=== PATIENT | male | born 1945 | race Caucasian/White ===

== ENCOUNTER 2025-04-29 16:35 | Observation (INO) | payer MEDICARE, SELFPAY ==
--- NOTE | ~2025-04-29 | MR_ITS ---
EXAMINATION: MR BRAIN WITHOUT CONTRAST CLINICAL INFORMATION: Question TIA. COMPARISON: Correlated to CT dated April 29, 2025 reported subacute to chronic small right subdural hematoma, parietal region. TECHNIQUE: MRI of the brain was obtained using routine sequences without contrast. FINDINGS: There is an extra-axial, crescent-shaped, 11 mm maximal thickness, mixed isointense with hyperintense T1 and hyperintense T2 FLAIR and susceptibility signal abnormality along the superior right frontoparietal convexity with the minimal mass effect upon the adjacent brain parenchyma. There is no midline shift, hydrocephalus or herniation. No restricted diffusion. Flow-void signal within the main cerebral vessels is normal. Posterior cranial fossa contents demonstrated no signal abnormality or mass effect. Normal position of the cerebellar tonsils. Midline structures are intact. Sellar/suprasellar region is normal. Bilateral, a few scattered, nonspecific subcortical deep white matter hyperintense T2 FLAIR signal involving centrum semiovale and connolly radiata. No bone marrow signal abnormality in the bony calvarium. MR/MR head/brain wo con IMPRESSION: Acute and Late subacute subdural hemorrhage, right frontoparietal convexity. No midline shift hydrocephalus or herniation. No acute ischemia. Electronically signed by: Zechariah Barbosa MD 04/30/2025 12:14 PM EST
--- NOTE | ~2025-04-29 | CT_ITS ---
CLINICAL HISTORY: fall with head strike, on thinners CT HEAD WITHOUT CONTRAST Comparison: None provided Findings: Mixed attenuation extra-axial fluid over the right frontoparietal convexity with maximum thickness 11 mm. No underlying parenchymal effacement or edema. No midline shift. No hydrocephalus. Probable subdural catheters bilaterally. Age appropriate generalized parenchymal atrophy. There are periventricular and subcortical white matter hypodensities which are most likely related to microangiopathic gliosis. No sinus or mastoid fluid. Visualized orbits: No acute abnormalities. No acute fracture. Probable ghost tract in the right frontal calvarium. IMPRESSION: Predominantly subacute to chronic small right subdural hematoma with trace superimposed acute blood in the high parietal region. This document has been electronically signed by: Brenda Oseguera DO on 04/29/2025 17:27:40
--- NOTE | 2025-04-29 16:40 | ED.GENADULT ---
HPI - General Adult General Chief complaint: General Medical Stated complaint: dizziness loss eyesight (brain surgery 02/27/25) Time Seen by Provider: 04/29/25 16:57 Related Data Allergies Allergy/AdvReac Type Severity Reaction Status Date / Time No Known Allergies Allergy Verified 04/29/25 16:43 [facility] Social History Social History Advance Directives: No Advance Directives Information Provided: Yes Do you have a plan to hurt others: No Plan Physical Exam ED Vital Signs: Vital Signs - 24 hr 04/29/25 16:41 04/29/25 18:07 Temperature 98 F 98.1 F Pulse Rate 69 69 Respiratory Rate 18 12 Blood Pressure 173/77 H 165/72 H Pulse Oximetry 98 98 Oxygen Delivery Method Room Air Room Air BMI result Body Mass Index 23.6 NIH Stroke Scale Internal: Initial- Upon Arrival Time: 19:12 Level of Consciousness: Alert Level of Consciousness Questions: Answers both questions correctly Level of Consciousness Commands: Performs both tasks correctly Best Gaze: Normal Visual: No visual loss Facial Palsy: Normal Motor Arm (Right): No drift Motor Arm (Left): No drift Motor Leg (Right): No drift Motor Leg (Left): No drift Limb Ataxia: Absent Sensory: Normal Best Language: No aphasia Dysarthia: Normal Extinction and Inattention: No abnormality Score: 0 Course Course Course Narrative: This is a rapid medical exam performed by Dru Hurtado NP: Additional HPI, ROS, PE not included below will be deferred to primary provider. Patient is an 79y/o M s/p brain surgery on 02/27/25 at the [facility] for bleeds presenting with complaint of vision changes today with associated dizziness. States the visual disturbances have since resolved and was exactly like prior TIAs. Also feels very tired. NIHSS 0 in triage. Plan: emergency room registered nurse notified, CT head, labs, EKG Medical Decision Making Medical Decision Making MDM Narrative: patient presented today with having changes in vision. Lasting approximately 5 minutes. Then resolved. There is no trauma today. Patient had a traumatic event back in December. Subsequently was noted to have a subdural hematoma. Drained at the [facility] in early February x2. 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 Currently not on blood thinners. Patient CT scan of the head in the emergency department showed area of subdural hematoma with question bleed noted in the right frontal area. The finding was discussed with Dr. Porter at [facility]. He was able to review the CT scan and compare with the previous CT scan. [place] the CT scan actually improved. had change in vision. Lasting about 5 minutes can not exclude the possibility of a TIA. Patient's NIH stroke scale was 0. Not a good candidate for tPA in the setting of previous history of acute bleed no finding are neuro exam. Patient to be admitted for close monitoring. Hospitalist team was contacted. Differential Diagnosis Differential Diagnoses: The differential diagnosis associated with the presentation includes Intracranial bleed. Subdural hematoma, TIA, amaurosis fugax Admission/Observation Consideration of admission/observation: Escalation of care including admission/observation considered Consult Healthcare Provider Management of the patient was discussed with: Hospitalist and Investment Analyst ( neurosurgery at [facility]) Lab Data MDM Lab Attestation statement: I reviewed the patient's lab results. 04/29/25 17:13 04/29/25 17:13 Labs: Lab Results 04/29/25 Range/Units 17:13 WBC 4.0 L (4.8-10.8) X10*3/uL RBC 4.24 L (4.60-5.80) X10*6/uL Hgb 12.5 L (14.0-18.0) g/dl Hct 38.9 L (42.0-52.0) % MCV 91.7 (80.0-98.0) fL MCH 29.5 (27.0-33.0) pg MCHC 32.1 (31.0-36.0) g/dl RDW 15.4 (11.0-16.0) % MPV 11.4 (9.4-12.4) fL Immature Gran % (Auto) 0.3 (0.0-0.4) % Neut % (Auto) 54.8 (45-73) % Lymph % (Auto) 28.1 (20-40) % [place] % (Auto) 12.0 H (2-11) % Eos % (Auto) 3.5 (0-4) % Baso % (Auto) 1.3 (0-2) % Lymph # (Auto) 1.1 L (1.2-4.9) X10*3/uL [place] # (Auto) 0.5 (0.1-1.2) X10*3/uL Eos # (Auto) 0.1 (0.0-0.4) X10*3/uL Baso # (Auto) 0.1 (0.0-0.2) X10*3/uL Abs Immat Gran (auto) 0.01 (0.00-0.03) X10*3/uL Absolute Neuts (auto) 2.2 (2.0-8.3) x10*3/uL Absolute Nucleated RBC 0.000 (0.0-0.012) X10*3/uL Nucleated RBC % (auto) 0.0 (0.0-0.2) /100WBC PT 13.6 H (11.2-13.5) SEC INR 1.1 (0.9-1.1) Sodium 146 H (135-145) mmol/L Potassium 3.8 (3.3-5.1) mmol/L Chloride 111 H (96-108) mmol/L Carbon Dioxide 26 (22-29) mmol/L Anion Gap 13 (12-20) BUN 16 (9-16) mg/dL Creatinine 0.85 (0.5-1.4) mg/dL Estim Creat Clear Calc 72.5 Estimated GFR > 60 Random Glucose 76 (60-115) mg/dL Calcium 9.4 (8.4-10.2) mg/dL Magnesium 2.2 (1.6-2.6) mg/dL Total Bilirubin 0.9 (0.0-1.0) mg/dL AST 32 (5-37) U/L ALT 35 (0-40) U/L Alkaline Phosphatase 119 H (39-117) U/L Total Protein 7.2 (6.5-8.0) g/dL Albumin 4.4 (3.5-5.0) g/dL Influenza Type A (PCR) NEGATIVE (Negative) Influenza Type B (PCR) NEGATIVE (Negative) RSV RNA Qual (PCR) NEGATIVE (Negative) SARS-CoV-2 RNA (RT-PCR) NEGATIVE (Negative) Independent Interpretation I performed an independent interpretation of an: EKG ( my interpretation of his EKG showed a sinus rhythm heart rate is 70 AK QRS QTC normal no acute ST segment elevation) and CT Scan ( my interpretation patient's CT head showed a old subdural hematoma with question acute component on the right side.) Radiology Impression Discussion of test interpretation with radiology: I discussed test interpretation with the radiologist and I have reviewed the radiologist's reading. Radiologist Impression: I discussed the finding with the radiology team External Record Review External record reviewed: Outpatient record Chronic Conditions history of intracranial bleed Social Determinants Patient?s care significantly limited by Social Determinants of Health including: Problems related to primary support group Critical Care Time Critical Care Time Critical Care Time: Yes Total Critical Care Time: 40 Attestation: I have personally provided 40 minutes of critical care time exclusive of time spent on separately billable procedures. Time includes review of lab data, radiology results, discussion with consultants, and monitoring for potential decompensation. Interventions were performed as documented above Discharge Plan Discharge Clinical Impression: Brain TIA Patient Disposition: Admitted As Inpatient
[2025-04-29 16:41] VITALS: BP 173/77; PULSE 69; RESP 18; TEMP 36.6; O2SAT 98; BMI 23.6
--- NOTE | 2025-04-29 16:45 | ECG_ITS ---
Test Reason : DIZZY Blood Pressure : */* mmHG Vent. Rate : 67 BPM Atrial Rate : 67 BPM P-R Int : 156 ms QRS Dur : 108 ms QT Int : 440 ms P-R-T Axes : 81 -7 67 degrees QTcB Int : 464 ms Normal sinus rhythm Normal ECG No previous ECGs available Referred By: Maria Luz Hurtado Electronically Signed By: DAYSI PEREZ
[2025-04-29 17:39] LABS: Hemoglobin 12.5 g/dl (14.0-18.0); Imm Gran Abs Auto 0.01 X10*3/uL (0.00-0.03); NRBC Abs Auto 0.000 X10*3/uL (0.0-0.012); NRBC Pct Auto 0.0 /100WBC (0.0-0.2); PLT CLUMP 1; SCAN SMEAR FLAG 1
[2025-04-29 17:41] LABS: Hematocrit 38.9 % (42.0-52.0); Imm Gran Pct Auto 0.3 % (0.0-0.4); Lymphocytes Absolute Auto 1.1 X10*3/uL (1.2-4.9); MANUAL DIFF FLAG SCAN; Mean Corpuscular HGB Conc 32.1 g/dl (31.0-36.0); Mean Corpuscular Hemoglobin 29.5 pg (27.0-33.0); Mean Corpuscular Volume 91.7 fL (80.0-98.0); Red Blood Count 4.24 X10*6/uL (4.60-5.80)
[2025-04-29 17:47] LABS: INTERNATIONAL NORM RATIO 1.1 (0.9-1.1); Prothrombin Time 13.6 SEC (11.2-13.5)
[2025-04-29 17:49] LABS: White Blood Count 4.0 X10*3/uL (4.8-10.8)
[2025-04-29 17:51] LABS: Alanine Aminotransferase 35 U/L (0-40); Albumin Level 4.4 g/dL (3.5-5.0); Alkaline Phosphatase 119 U/L (39-117); Anion Gap 13 (12-20); Aspartate Amino Transferase 32 U/L (5-37); Blood Urea Nitrogen 16 mg/dL (9-16); Calcium 9.4 mg/dL (8.4-10.2); Carbon Dioxide 26 mmol/L (22-29); Chloride 111 mmol/L (96-108); Creatinine Clr Calc Pharmacy 72.5; Estimated Glomerular Filt Rate > 60; Magnesium 2.2 mg/dL (1.6-2.6); Potassium 3.8 mmol/L (3.3-5.1); Sodium 146 mmol/L (135-145); Total Protein 7.2 g/dL (6.5-8.0)
[2025-04-29 18:07] VITALS: BP 165/72; PULSE 69; RESP 12; TEMP 36.7; O2SAT 98
--- OUTSIDE RECORDS SUMMARY | 2025-04-29 18:15 | XMS_ITS | Encounter Summary ---
Author Organization [facility] Address [address] [place] [address] Phone Care Team Providers Care Protection Mgr Name Role Phone Self-Referred, Patient Unavailable Unavailab Silvio Lynn MD Unavailable [phone] Samanta Webster MD, MPH Unavailable [phone] Sergio Nation MD Primary Care Provider + Syd Graves MD Unavailable [phone] Encounter Details Date Type Department Care Team (Late st Contact Info) Description 04/29/2025 6:15 PM EST Ancillary Procedure [facility] [address] [place] [address] Clyde Ibarra MD 60 [facility]st [facility] [place] [address] [email or web address] Arrived Social History Tobacco Use Types Packs/Day Years Used Date Smoking Tobacco: Former Cigarettes 1 10 0 08/29/1954 - 08/29/1964 Smokeless Tobacco: Former Alcohol Use Standard Drinks/Week Comments Yes 0 (1 standard drink = 0.6 oz pur e alcohol) special occasions only Education Answer Date Recorded Are you interested in more education? Not on ruperto e 09/24/2022 Are you concerned about learning? Not on file 09/24/2022 No 09/24/2022 No 09/24/2022 Food Answer Date Recorded Within the past 6 months we worried whether our food would run out before we got money to buy more. Never True 03/01/2025 Within the past 6 months the food we bought just didn't last and we didn't have enough money to get more. Never True Residential Stability Answer Date Recor ded What is your housing situation today? I have melvi molina 03/01/2025 How many times have you move d in the past 12 months? Zero (I did not move) 03/01/2025 Paying for Meds Answer Date Recorded Do you have trouble paying for medicines? No 03/01/2025 Paying Utility Bills Answer Date Record ed Do you have trouble paying your heating or elect ricity bill? No 03/01/2025 Transportation Answer Date Recorded Has the lack of transportati on kept you from medical appointments or from getting medications? No 03/01/2025 Digital Access Answer Date Recorded No 03/01/2025 Yes 03/01/2025 Do you have reliable internet access at home? Ye s 03/01/2025 Do you have a device (e.g., phone, tablet, computer) with a working camera? Yes 03/01/2025 Intimate Partner Violence Answer Date R ecorded Are you denied basic needs s uch as food, clothing, or medical care? No 02/28/2025 In the past 12 months have y ou been in a relationship with a person who hurts, threatens, or tries to control you? No 02/28/2025 Are you denied basic needs s uch as food, clothing, or medical care? No 02/28/2025 In the past 12 months have y ou been in a relationship with a person who hurts, threatens, or tries to control you? 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 Not on file Not on file documented as of this encounter Plan of Treatment Upcoming Encounters Date Type Department Care Team (Late st Contact Info) Description 09/18/2024 Procedure Pass [facility], Radiology Department 03/07/2025 Procedure Pass [facility] CT Imaging, [place] [address] [place] [address] 06/06/2025 2:00 PM EST Appointment [facility] CT Imaging, [place] [address] [place] [address] Clyde Ibarra MD [address] [address] [email or web address] 06/06/2025 2:30 PM EST Office Visit [facility] Department of Neurosurgery [address] [place] [address] Clyde Ibarra MD [address] [address] [email or web address] 09/16/2025 8:30 AM EDT Appointment [facility], Radiology Department Syd Graves MD [address] [place] [phone] [email or web address] 09/16/2025 9:00 AM EDT Blood Draw DF/BWCC at [facility], Phlebotomy Services [address] [place] [address] Syd Graves MD [address] [place] [phone] [email or web address] 09/19/2025 10:40 AM EDT Office Visit [facility] at [address] [address] Syd Graves MD [address] [place] [phone] [email or web address] documented as of this encounter Procedures Procedure Name Priority Date/Time Associated Diagnosis Comments CT HEAD OUTSIDE (NO INTERPRETATION) Routine 04/29/2025 6:12 PM EST documented in this encounter Results * CT Head Outside (No Interpretation) (04/29/2025 6:12 PM EST) Narrative MICHAEL - 04/29/2025 6:12 PM EST This study is for PACS storage only and not for interpretation. us Clyde Ibarra MD IMG OUTSIDE IMAGING W/OUT INTER PRETATION Final Result [email or web address]_KENDRICK documented in this encounter Visit Diagnoses Not on filedocumented in this encounter Care Teams Protection Mgr Relationship Specialty Start Date End Date Sergio Nation MD [address] [place] [address] PCP - General Internal Medicine 09/21/22 Self-Referred, Patient 07/20/18 Silvio Currie MD [address] [place] [address] Referring Physician Urology 07/20/18 Samanta Webster MD, MPH [address] [place] [address] [email or web address] Medical Oncology 08/07/18 Syd Graves MD 20 [place] [phone] [email or web address] Primary Oncologist Medical Oncology 09/17/24 documented as of this encounter Additional Source Comments The information contained in this document represents components of the legal health record. It is not the complete legal health record.[facility]
[2025-04-29 18:20] LABS: Resp Syncy Virus RNA Qual PCR NEGATIVE (Negative); SARS COV2 PCR INHOUSE NEGATIVE (Negative)
--- OUTSIDE RECORDS SUMMARY | 2025-04-29 18:56 | XMS_ITS | Encounter Summary ---
Author Organization [facility] Address [address] [facility] [address] [place] [address] Phone Care Team Providers Care Administrative Resources Associate Name Role Phone Self-Referred, Patient Unavailable Unavailab Silvio Lynn MD Unavailable [phone] Samanta Webster MD, MPH Unavailable [phone] Sergio Nation MD Primary Care Provider + Syd Graves MD Unavailable [phone] Encounter Details Date Type Department Care Team (Late st Contact Info) Description 09/15/2023 Procedure Pass [facility], Radiology Department Social History Tobacco Use Types Packs/Day Years [...] on file 09/24/2022 No 09/24/2022 No 09/24/2022 Digital Access Answer Date Recorded No 10/26/2022 No 10/26/2022 No 10/26/2022 Reliable internet access at home? Not on file 10/26/2022 Device with a working camera? Not on file Sex and Gender Information Value Date Recorded [...] st Contact Info) Description 09/18/2024 Procedure Pass [facility], Radiology Department 03/07/[address] [facility] CT Imaging, [place] [address] [place] [address] 06/06/2025 2:00 PM EST Appointment [facility] CT Imaging, [place] [address] [place] [address] Clyde Ibarra MD [address] [address] [email or web address] 06/06/2025 2:30 PM EST Office Visit [facility] Department of Neurosurgery [address] [place] [address] Clyde Ibarra MD [address] [place] [address] [email or web address] 09/16/2025 8:30 AM EDT Appointment [facility], Radiology Department Syd Graves MD [address] [place] [phone] [email or web address] 09/16/2025 9:00 AM EDT Blood Draw DF/BWCC at [facility], Phlebotomy Services [address] [place] [address] Syd Graves MD [address] [place] [phone] [email or web address] 09/19/2025 10:40 AM EDT Office Visit [facility] [address] [address] Syd Graves MD 20 [place] [phone] [email or web address] documented as of this encounter Visit Diagnoses Not on filedocumented in this encounter Care Teams Administrative Resources Associate Relationship Specialty Start Date End Date Sergio Nation MD [address] [place] [address] PCP - General Internal Medicine 09/21/22 Self-Referred, Patient 07/20/18 Silvio Currie MD [address] [place] [address] Referring Physician Urology 07/20/18 Samanta Webster MD, MPH [address] [place] [address] [email or web address] Medical Oncology 08/07/18 Syd Graves MD 20 [place] [phone] [email or web address] Primary Oncologist Medical Oncology 09/17/24 documented as of this encounter Additional Source Comments The information contained in this document represents components of the legal health record. It is not the complete legal health record.[facility]
--- OUTSIDE RECORDS SUMMARY | 2025-04-29 18:56 | XMS_ITS | Encounter Summary ---
Author Organization [facility] Address [address] [facility] [address] [place] [address] Phone Care Team Providers Care Project Eng Name Role Phone Self-Referred, Patient Unavailable Unavailab Silvio Lynn MD Unavailable [phone] Samanta Webster MD, MPH Unavailable [phone] Sergio Nation MD Primary Care Provider + Syd Graves MD Unavailable [phone] Encounter Details Date Type Department Care Team (Late st Contact Info) Description 03/06/[address] [facility] Neuro Interventional Radiology [address] [place] [address] Kathrine Lopez PA-C 60 [place] [address] [email or web address] Social History Tobacco Use Types Packs/Day Years [...] your housing situation today? I have melvi sing 03/01/2025 How many times have you move [...] st Contact Info) Description 09/18/2024 Procedure Pass [facility], Radiology Department 03/07/[address] [facility] CT Imaging, [place] [address] [place] [address] 06/06/2025 2:[address] [facility] CT Imaging, [place] [address] [place] [address] Clyde Ibarra MD [address] [address] [email or web address] 06/06/2025 2:30 PM EST Office Visit [facility] Department of Neurosurgery 60 [place] [address] Clyde Ibarra MD [address] [address] [email or web address] 09/16/2025 8:30 AM EDT Appointment [facility], Radiology Department Syd Graves MD [address] [place] [phone] [email or web address] 09/16/2025 9:00 AM EDT Blood Draw DF/BWCC at [facility], Phlebotomy Services [address] [place] [address] Syd Graves MD [address] [place] [phone] [email or web address] 09/19/2025 10:40 AM EDT Office Visit [facility] at [address] [address] Syd Graves MD [address] [place] [phone] [email or web address] documented as of this encounter Visit Diagnoses Not on filedocumented in this encounter Care Teams Project Eng Relationship Specialty Start Date End Date Sergio Nation MD [address] [place] [address] PCP - General Internal Medicine 09/21/22 Self-Referred, Patient 07/20/18 Silvio Currie MD [address] [place] [address] Referring Physician Urology 07/20/18 Samanta Webstre MD, MPH [address] [place] [address] [email or web address] Medical Oncology 08/07/18 Syd Graves MD 20 [place] [address] [email or web address] Primary Oncologist Medical Oncology 09/17/24 documented as of this encounter Additional Source Comments The information contained in this document represents components of the legal health record. It is not the complete legal health record.[facility]
--- OUTSIDE RECORDS SUMMARY | 2025-04-29 18:56 | XMS_ITS | Encounter Summary ---
Author Organization [facility] Address [address] [facility] [address] [place] [address] Phone Care Team Providers Care Food Technology Teacher Name Role Phone Tapan Ortega MD Primary Care Provide r Self-Referred, Patient Unavailable Unavailab Silvio Lynn MD Unavailable [phone] Samanta Webster MD, MPH Unavailable [phone] Sergio Nation MD Primary Care Provider + Syd Graves MD Unavailable [phone] Encounter Details Date Type Department Care Team (Late st Contact Info) Description 02/12/2020 Procedure Pass [facility], Radiology Department Social History Tobacco Use Types Packs/Day Years Used Date Smoking Tobacco: Former Cigarettes 1 10 0 08/29/1954 - 08/29/1964 Smokeless Tobacco: Former Alcohol Use Standard Drinks/Week Comments Yes 0 (1 standard drink = 0.6 oz pur e alcohol) special occasions only Sex and Gender Information Value Date Recorded [...] st Contact Info) Description 09/18/2024 Procedure Pass [facility], Radiology Department 03/07/2025 Procedure Pass [facility] CT Imaging, [place] [address] [place] [address] 06/06/2025 2:00 PM EST Appointment [facility] CT Imaging, [place] [address] [place] [address] Clyde Ibarra MD [address] [address] [email or web address] 06/06/2025 2:30 PM EST Office Visit [facility] Department of Neurosurgery 60 [place] [address] Clyde Ibarra MD [address] [address] @[email or web address] 09/16/2025 8:30 AM EDT Appointment [facility], Radiology Department Syd Graves MD [address] [place] [phone] [email or web address] 09/16/2025 9:00 AM EDT Blood Draw DF/BWCC at [facility], Phlebotomy Services [address] [place] [address] Syd Graves MD [address] [place] [phone] [email or web address] 09/19/2025 10:40 AM EDT Office Visit [facility] at [address] [address] Syd Graves MD [address] [place] [phone] [email or web address] documented as of this encounter Visit Diagnoses Not on filedocumented in this encounter Additional Health Concerns Infection Onset Date Last Indicated Resolved Time CoV-Risk 03/12/2021 03/12/2021 03/22/2021 1:22 AM EDT documented as of this encounter Care Teams Food Technology Teacher Relationship Specialty Start Date End Date Tapan Ortega MD [address] [place] [address] PCP - General Internal Medicine 03/24/18 09/20/22 Sergio Nation MD [address] [facility] [address] [place] [address] PCP - General Internal Medicine 09/21/22 Self-Referred, Patient 07/20/18 Silvio Currie MD [address] [address] Referring Physician Urology 07/20/18 Samanta Webster MD, MPH [address] [place], [place] [address] [address] [place] [address] [email or web address] Medical Oncology 08/07/18 Syd Graves MD 20 [place] [address] [email or web address] Primary Oncologist Medical Oncology 09/17/24 documented as of this encounter Additional Source Comments The information contained in this document represents components of the legal health record. It is not the complete legal health record.[facility]
--- OUTSIDE RECORDS SUMMARY | 2025-04-29 18:56 | XMS_ITS | Encounter Summary ---
Author Organization [facility] Address [address] [place] [address] Phone Care Team Providers Care Nurse Assistant Name Role Phone Self-Referred, Patient Unavailable Unavailab Silvio Lynn MD Unavailable [phone] Samanta Webster MD, MPH Unavailable [phone] Sergio Nation MD Primary Care Provider + Syd Graves MD Unavailable [phone] Encounter Details Date Type Department Care Team (Late st Contact Info) Description 03/04/2025 Procedure Pass [facility] Neuro Interventional Radiology [address] [place] [id number] Social History Tobacco Use Types Packs/Day Years [...] st Contact Info) Description 09/18/2024 Procedure Pass [facility], Radiology Department 03/07/2025 Procedure Pass [facility] CT Imaging, [place] [address] [place] [address] 06/06/2025 2:00 PM EST Appointment [facility] CT Imaging, [place] [address] [place] [address] Clyde Ibarra MD [address] [address] [email or web address] 06/06/2025 2:30 PM EST Office Visit [facility] Department of Neurosurgery 60 [place] [address] Clyde Ibarra MD [address] [address] [email or web address] 09/16/2025 8:30 AM EDT Appointment [facility], Radiology Department Syd Graves MD [address] [place] [phone] [email or web address] 09/16/2025 9:00 AM EDT Blood Draw DF/BWCC at [facility], Phlebotomy Services [address] [place] [address] Syd Graves MD [address] [place] [phone] [email or web address] 09/19/2025 10:40 AM EDT Office Visit [facility] at [address] [address] Syd Graves MD [address] [place] [phone] [email or web address] documented as of this encounter Visit Diagnoses Not on filedocumented in this encounter Care Teams Nurse Assistant Relationship Specialty Start Date End Date Sergio Nation MD [address] [place] [address] PCP - General Internal Medicine 09/21/22 Self-Referred, Patient 07/20/18 Silvio Currie MD [address] [place] [address] Referring Physician Urology 07/20/18 Samanta Webster MD, MPH [address] [place] [address] [email or web address] Medical Oncology 08/07/18 Syd Graves MD 20 [place] [phone] [email or web address] Primary Oncologist Medical Oncology 09/17/24 documented as of this encounter Additional Source Comments The information contained in this document represents components of the legal health record. It is not the complete legal health record.[facility]
--- OUTSIDE RECORDS SUMMARY | 2025-04-29 18:56 | XMS_ITS | Encounter Summary ---
Author Organization [facility] Address [address] [place] [address] Phone Care Team Providers Care Summer Counselor Name Role Phone Tapan Ortega MD Primary Care Provide r Self-Referred, Patient Unavailable Unavailab iSlvio Lynn MD Unavailable [phone] Samanta Webster MD, MPH Unavailable [phone] Sergio Nation MD Primary Care Provider + Syd Graves MD Unavailable [phone] Reason for Referral * - Closed Specialty Diagnoses / Procedures Referred By Contmargaret jean Referred To Contact Radiology Diagnoses Prostate cancer Procedures NM SPECTCT Tumor Loc Luke Miller MD Phone: tel: fax: mailto:[email or web address] Referral ID Status Reason Start Date Expiration Date Visits Re quested Visits Authorized [id number] Closed 07/10/2018 07/10/2019 1 1 Encounter Details Date Type Department Care Team (Late st Contact Info) Description 07/10/2018 Ancillary Orders [facility] [address] [place] [address] Luke Miller MD [address] [place] [address] [email or web address] Prostate cancer Social History Tobacco Use Types Packs/Day Years Used Date Smoking Tobacco: Never Smokeless Tobacco: Never Sex and Gender Information Value Date Recorded Sex Assigned at Male 09/16/2022 8:12 PM EDT Legal Sex Male 8:04 AM EDT Gender Identity Male 09/16/2022 8:12 PM EDT Sexual Orientation Straight 09/16/2022 8: 12 PM EDT documented as of this encounter Plan of Treatment Upcoming Encounters Date Type Department Care Team (Late st Contact Info) Description 09/18/2024 Procedure Pass [facility], Radiology Department 03/07/[address] [facility] CT Imaging, [place] [address] [place] [address] 06/06/2025 2:[address] [facility] CT Imaging, [place] [address] [place] [address] Clyde Ibarra MD [address] [place] [address] [email or web address] 06/06/2025 2:30 PM EST Office Visit [facility] Department of Neurosurgery [address] [place] [address] Clyde Ibarra MD [address] [place] [address] [email or web address] 09/16/2025 8:30 AM EDT Appointment [facility], Radiology Department Syd Graves MD [address] [place] [phone] [email or web address] 09/16/2025 9:00 AM EDT Blood Draw DF/BWCC at [facility], Phlebotomy Services [address] [place] [address] Syd Graves MD 20 [place] [phone] [email or web address] 09/19/2025 10:40 AM EDT Office Visit [facility] at [facility] [address] [address] Syd Graves MD 20 [place] [phone] [email or web address] documented as of this encounter Results * NM SPECTCT Tumor Loc (07/10/2018 2:46 PM EST) Anatomical Region Laterality Modality Nuclear Medicine 07/10/2018 2:46 PM EST Impressions 07/10/2018 4:21 PM EST 1. There is no scintigraphic evidence of osseous metastatic disease. 2. A 2.2 cm right lower quadrant mesenteric soft tissue lesion with calcification is also incompletely characterized. Differential include calcified inflammatory lymph node, thrombosed aneurysm, less likely carcinoid tumor. Comparison prior imaging would be helpful to assess chronicity, if no prior studies exist, Recommend dedicated contrast enhanced CT abdomen/pelvis for baseline evaluation. 3. Incompletely characterized and partly visualized multiple right renal cysts. These can be better assessed on follow-up imaging.. ATTESTATION: Luke Carlson, as teaching physician have reviewed the images, if any, for this patient's exam, and if necessary, have edited the report originally created by Anant Rodriguez. Narrative 07/10/2018 4:21 PM EST Reason for exam (per EHR order): + Prostate cancer [Known Dx] Additional clinical information obtained from the EHR: 72-year-old male. Elevated PSA levels. Evaluation of osseous metastasis.. TECHNIQUE: Radiopharmaceutical: Tc-99m MDP. Dose: 27.0 mCi. Image acquisition: Approximately three hours following the intravenous administration of radiopharmaceutical, whole body planar imaging was performed in the anterior and posterior projections with additional spot views of the skull and upper extremities. In addition, SPECT/CT imaging of the pelvis was performed for better anatomic localization. COMPARISON: There is no prior bone scan available for comparison. MRI pelvis of 05/12/2018. FINDINGS: There are no focal areas of increased uptake suspicious for osseous metastasis. There are degenerative-appearing changes in the spine, shoulders, acromioclavicular joints, hands, hip, knee and ankle. Focal photopenic defect overlying the sternum on anterior projection is likely artifactual. There is excreted radiotracer in the kidneys and bladder. SPECT/CT: Focal area of increased tracer uptake on the right aspect of L5-S1and left lateral aspect of L2-L3 intervertebral disc and adjacent endplates are in keeping with degenerative changes. Mild uptake associated with the left sacroiliac joint also likely related to degenerative changes. Tiny sclerotic lesion seen in the pubic bones bilaterally and left iliac bone with no significant tracer uptake are more likely benign bone islands. Additional findings on the CT portion of the SPECT/CT: Again seen is prostatomegaly with areas of calcifications. Partially visualized multiple exophytic cysts in the lower pole of the right kidney largest measuring 6.7 cm are incompletely characterized. There is a soft tissue lesion with calcification in the right lower quadrant of the abdomen adjacent to the terminal ileum measuring 2.2 cm. Procedure Note Luke Miller MD - 07/10/2018 Reason for exam (per EHR order): + Prostate cancer [Known Dx] Additional clinical information obtained from the EHR: 72-year-old male. Elevated PSA levels. Evaluation of osseous metastasis.. TECHNIQUE: Radiopharmaceutical: Tc-99m MDP. Dose: 27.0 mCi. Image acquisition: Approximately three hours following the intravenous administration of radiopharmaceutical, whole body planar imaging was performed in the anterior and posterior projections with additional spot views of the skull and upper extremities. In addition, SPECT/CT imaging of the pelvis was performed for better anatomic localization. COMPARISON: There is no prior bone scan available for comparison. MRI pelvis of 05/12/2018. FINDINGS: There are no focal areas of increased uptake suspicious for osseous metastasis. There are degenerative-appearing changes in the spine, shoulders, acromioclavicular joints, hands, hip, knee and ankle. Focal photopenic defect overlying the sternum on anterior projection is likely artifactual. There is excreted radiotracer in the kidneys and bladder. SPECT/CT: Focal area of increased tracer uptake on the right aspect of L5-S1and left lateral aspect of L2-L3 intervertebral disc and adjacent endplates are in keeping with degenerative changes. Mild uptake associated with the left sacroiliac joint also likely related to degenerative changes. Tiny sclerotic lesion seen in the pubic bones bilaterally and left iliac bone with no significant tracer uptake are more likely benign bone islands. Additional findings on the CT portion of the SPECT/CT: Again seen is prostatomegaly with areas of calcifications. Partially visualized multiple exophytic cysts in the lower pole of the right kidney largest measuring 6.7 cm are incompletely characterized. There is a soft tissue lesion with calcification in the right lower quadrant of the abdomen adjacent to the terminal ileum measuring 2.2 cm. IMPRESSION: 1. There is no scintigraphic evidence of osseous metastatic disease. 2. A 2.2 cm right lower quadrant mesenteric soft tissue lesion with calcification is also incompletely characterized. Differential include calcified inflammatory lymph node, thrombosed aneurysm, less likely carcinoid tumor. Comparison prior imaging would be helpful to assess chronicity, if no prior studies exist, Recommend dedicated contrast enhanced CT abdomen/pelvis for baseline evaluation. 3. Incompletely characterized and partly visualized multiple right renal cysts. These can be better assessed on follow-up imaging.. ATTESTATION: Luke Carlson, as teaching physician have reviewed the images, if any, for this patient's exam, and if necessary, have edited the report originally created by Anant Rodriguez. Luke Miller MD IMG NM TUMOR LOC Final Resu lt documented in this encounter Visit Diagnoses Diagnosis Prostate cancer Malignant neoplasm of prostate Prostate cancer Malignant neoplasm of prostate Prostate cancer Malignant neoplasm of prostate documented in this encounter Additional Health Concerns Infection Onset Date Last Indicated Resolved Time CoV-Risk 03/12/2021 03/12/2021 03/22/2021 1:22 AM EDT documented as of this encounter Care Teams Summer Counselor Relationship Specialty Start Date End Date Tapan Ortega MD [address] [place] [address] PCP - General Internal Medicine 10/26/18 4/24/23 Sergio Nation MD [address] [place] [address] PCP - General Internal Medicine 09/21/22 Self-Referred, Patient 07/20/18 Silvio Currie MD [address] [place] [address] Referring Physician Urology 07/20/18 Samanta Webster MD, MPH [address] [place] [address] [email or web address] Medical Oncology 08/07/18 Syd Graves MD [address] [place] [phone] [email or web address] Primary Oncologist Medical Oncology 09/17/24 documented as of this encounter Additional Source Comments The information contained in this document represents components of the legal health record. It is not the complete legal health record.[facility]
--- OUTSIDE RECORDS SUMMARY | 2025-04-29 18:56 | XMS_ITS | Encounter Summary ---
Author Organization [facility] Address [address] [place] [address] Phone Care Team Providers Care Steel Turner Name Role Phone Self-Referred, Patient Unavailable Unavailab Silvio Lynn MD Unavailable [phone] Samanta Webster MD, MPH Unavailable [phone] Sergio Nation MD Primary Care Provider + Syd Graves MD Unavailable [phone] Encounter Details Date Type Department Care Team (Late st Contact Info) Description 07/14/2023 Procedure Pass [facility], Radiology Department Social History Tobacco Use [...] st Contact Info) Description 09/18/2024 Procedure Pass [facility], Radiology Department 03/07/2025 Procedure Pass [facility] CT Imaging, [place] 60 [place] [address] 06/06/2025 2:00 PM EST Appointment [facility] CT Imaging, [place] 60 [place] [address] Clyde Ibarra MD [address] [address] [email or web address] 06/06/2025 2:30 PM EST Office Visit [facility] Department of Neurosurgery [address] [place] [address] Clyde Ibarra MD [address] [place] [address] [email or web address] 09/16/2025 8:30 AM EDT Appointment [facility], Radiology Department Syd Graves MD [address] [place] [phone] [email or web address] 09/16/2025 9:00 AM EDT Blood Draw DF/BWCC at [facility], Phlebotomy Services [address] [place] [address] Syd Graves MD [address] [place] [phone] [email or web address] 09/19/2025 10:40 AM EDT Office Visit [facility] at [facility] [address] [address] Syd Graves MD 20 [place] [phone] [email or web address] documented as of this encounter Visit Diagnoses Not on filedocumented in this encounter Care Teams Steel Turner Relationship Specialty Start Date End Date Sergio Nation MD [address] [place] [address] PCP - General Internal Medicine 09/21/22 Self-Referred, Patient 07/20/18 Silvio Currie MD [address] [place] [address] Referring Physician Urology 07/20/18 Samanta Webster MD, MPH [address] [place] [address] [email or web address] Medical Oncology 08/07/18 Syd Graves MD 20 [place] [address] [email or web address] Primary Oncologist Medical Oncology 09/17/24 documented as of this encounter Additional Source Comments The information contained in this document represents components of the legal health record. It is not the complete legal health record.[facility]
--- OUTSIDE RECORDS SUMMARY | 2025-04-29 18:56 | XMS_ITS | Encounter Summary ---
Author Organization [facility] Address [address] [place] [address] Phone Care Team Providers Care Online Media Director Name Role Phone Self-Referred, Patient Unavailable Unavailab Silvio Lynn MD Unavailable [phone] Samanta Webster MD, MPH Unavailable [phone] Sergio Nation MD Primary Care Provider + Syd Graves MD Unavailable [phone] Encounter Details Date Type Department Care Team (Late st Contact Info) Description 09/15/2023 Procedure Pass [facility] OUTSIDE APPOINTMENT Social History Tobacco Use Types Packs/Day Years [...] st Contact Info) Description 09/18/2024 Procedure Pass [facility], Radiology Department 03/07/2025 Procedure Pass [facility] CT Imaging, [place] 60 [place] [address] 06/06/2025 2:00 PM EST Appointment [facility] CT Imaging, [place] 60 [place] [address] Clyde Ibarra MD [address] [address] [email or web address] 06/06/2025 2:30 PM EST Office Visit [facility] Department of Neurosurgery 60 [place] [address] Clyde Ibarra MD [address] [address] [email or web address] 09/16/2025 8:30 AM EDT Appointment [facility], Radiology Department Syd Graves MD [address] [place] [phone] [email or web address] 09/16/2025 9:00 AM EDT Blood Draw DF/BWCC at [facility], Phlebotomy Services [address] [place] [address] Syd Graves MD [address] [place] [phone] [email or web address] 09/19/2025 10:40 AM EDT Office Visit [facility] at [facility] [address] [address] Syd Graves MD 20 [place] [phone] [email or web address] documented as of this encounter Visit Diagnoses Not on filedocumented in this encounter Care Teams Online Media Director Relationship Specialty Start Date End Date Sergio Nation MD [address] [place] [address] PCP - General Internal Medicine 09/21/22 Self-Referred, Patient 07/20/18 Silvio Currie MD [address] [place] [address] Referring Physician Urology 07/20/18 Samanta Webster MD, MPH [address] [place] [address] [email or web address] Medical Oncology 08/07/18 Syd Graves MD 20 [place] [phone] [email or web address] Primary Oncologist Medical Oncology 09/17/24 documented as of this encounter Additional Source Comments The information contained in this document represents components of the legal health record. It is not the complete legal health record.[facility]
--- OUTSIDE RECORDS SUMMARY | 2025-04-29 18:56 | XMS_ITS | Encounter Summary ---
Author Organization [facility] Address [address] [place] [address] Phone Care Team Providers Care Garage Manager Name Role Phone Tapan Ortega MD Primary Care Provide r Self-Referred, Patient Unavailable Unavailab Silvio Lynn MD Unavailable [phone] Samanta Webster MD, MPH Unavailable [phone] Sergio Nation MD Primary Care Provider + Syd Graves MD Unavailable [phone] Encounter Details Date Type Department Care Team (Late st Contact Info) Description 07/22/2022 Procedure Pass [facility], Radiology Department Social History Tobacco Use Types [...] st Contact Info) Description 09/18/2024 Procedure Pass [facility], Radiology Department 03/07/2025 Procedure Pass [facility] CT Imaging, [place] [address] [place] [address] 06/06/2025 2:00 PM EST Appointment [facility] CT Imaging, [place] [address] [place] [address] Clyde Ibarra MD [address] [address] [email or web address] 06/06/2025 2:30 PM EST Office Visit [facility] Department of Neurosurgery 60 [place] [address] Clyde Ibarra MD [address] [address] [email or web address] 09/16/2025 8:30 AM EDT Appointment [facility], Radiology Department Syd Graves MD [address] [place] [phone] [email or web address] 09/16/2025 9:00 AM EDT Blood Draw DF/BWCC at [facility], Phlebotomy Services [address] [place] [address] Syd Graves MD [address] [place] [phone] [email or web address] 09/19/2025 10:40 AM EDT Office Visit [facility] at [address] [address] Syd Graves MD [address] [place] [phone] [email or web address] documented as of this encounter Visit Diagnoses Not on filedocumented in this encounter Care Teams Garage Manager Relationship Specialty Start Date End Date Tapan Ortega MD [address] [place] [address] [address] [place] [address] PCP - General Internal Medicine 03/24/18 09/20/22 Sergio Nation MD [address] [place] [address] PCP - General Internal Medicine 09/21/22 Self-Referred, Patient 07/20/18 Silvio Currie MD [address] [facility] [address] [place] [address] Referring Physician Urology 07/20/18 Samanta Webster MD, MPH [address] [place], [place] [address] [address] [place] [address] [email or web address] Medical Oncology 08/07/18 Syd Graves MD [address] [place] [phone] [email or web address] Primary Oncologist Medical Oncology 09/17/24 documented as of this encounter Additional Source Comments The information contained in this document represents components of the legal health record. It is not the complete legal health record.[facility]
--- OUTSIDE RECORDS SUMMARY | 2025-04-29 18:57 | XMS_ITS | Encounter Summary ---
Author Organization [facility] Address [address] [place] [address] Phone Care Team Providers Care Silviculture Teacher Name Role Phone Self-Referred, Patient Unavailable Unavailab Silvio Lynn MD Unavailable [phone] Samanta Webster MD, MPH Unavailable [phone] Sergio Nation MD Primary Care Provider + Syd Graves MD Unavailable [phone] Encounter Details Date Type Department Care Team (Late st Contact Info) Description 03/05/2025 Procedure Pass [facility] and [facility]'s Radiology [address] [place] [address] Social History Tobacco Use Types Packs/Day Years [facility] 03/07/2025 Procedure Pass [facility] CT Imaging, [place] [address] [place] [address] 06/06/2025 2:00 PM EST Appointment [facility] CT Imaging, [place] [address] [place] [address] Clyde Ibarra MD [address] [address] [email or web address] 06/06/2025 2:30 PM EST Office Visit [facility] Department of Neurosurgery [address] [place] [address] Clyde Ibarra MD [address] [address] [email or web address] 09/16/2025 8:30 AM EDT Appointment [facility], Radiology Department Syd Graves MD [address] [place] [phone] [email or web address] 09/16/2025 9:00 AM EDT Blood Draw DF/BWCC at [facility], Phlebotomy Services [address] [place] [address] Syd Graves MD [address] [place] [phone] [email or web address] 09/19/2025 10:40 AM EDT Office Visit [facility] at [address] [address] Syd Graves MD [address] [place] [phone] [email or web address] documented as of this encounter Visit Diagnoses Not on filedocumented in this encounter Care Teams Silviculture Teacher Relationship Specialty Start Date End Date Sergio Nation MD [address] [place] [address] PCP - General Internal Medicine 09/21/22 Self-Referred, Patient 07/20/18 Silvio Currie MD [address] [place] [address] Referring Physician Urology 07/20/18 Samanta Webster MD, MPH [address] [place] [address] [email or web address] Medical Oncology 08/07/18 Syd Graves MD [address] [place] [phone] [email or web address] Primary Oncologist Medical Oncology 09/17/24 documented as of this encounter Additional Source Comments The information contained in this document represents components of the legal health record. It is not the complete legal health record.[facility]
--- OUTSIDE RECORDS SUMMARY | 2025-04-29 18:57 | XMS_ITS | Encounter Summary ---
Author Organization [facility] Address [address] [place] [address] Phone Care Team Providers Care Lead Oracle Developer Name Role Phone Self-Referred, Patient Unavailable Unavailab Silvio Lynn MD Unavailable [phone] Samanta Webster MD, MPH Unavailable [phone] Sergio Nation MD Primary Care Provider + Syd Graves MD Unavailable [phone] Encounter Details Date Type Department Care Team (Late st Contact Info) Description 03/02/2025 Procedure Pass [facility] and [facility]'s Radiology [address] [place] [address] Social History Tobacco Use Types Packs/Day Years [...] st Contact Info) Description 09/18/2024 Procedure Pass [facility], Radiology Department 03/07/[address] [facility] CT Imaging, [place] [address] [place] [address] 06/06/2025 2:[address] [facility] CT Imaging, [place] [address] [place] [address] Clyde Ibarra MD [address] [address] [email or web address] 06/06/2025 2:30 PM EST Office Visit [facility] Department of Neurosurgery [address] [place] [address] Clyde Ibarra MD [address] [address] [email or web address] 09/16/2025 8:30 AM EDT Appointment [facility], Radiology Department Syd Graves MD [address] [place] [phone] [email or web address] 09/16/2025 9:00 AM EDT Blood Draw DF/BWCC at [facility], Phlebotomy Services [address] [place] [address] Syd Graves MD [address] [place] [phone] [email or web address] 09/19/2025 10:40 AM EDT Office Visit [facility] at [address] [address] Syd Graves MD [address] [place] [phone] [email or web address] documented as of this encounter Visit Diagnoses Not on filedocumented in this encounter Care Teams Lead Oracle Developer Relationship Specialty Start Date End Date Sergio Nation MD [address] [place] [address] PCP - General Internal Medicine 09/21/22 Self-Referred, Patient 07/20/18 Silvio Currie MD [address] [place] [address] [address] Referring Physician Urology 07/20/18 Samanta Webster MD, MPH [address] [place] [address] [email or web address] Medical Oncology 08/07/18 Syd Graves MD [address] [place] [phone] [email or web address] Primary Oncologist Medical Oncology 09/17/24 documented as of this encounter Additional Source Comments The information contained in this document represents components of the legal health record. It is not the complete legal health record.[facility]
--- OUTSIDE RECORDS SUMMARY | 2025-04-29 18:57 | XMS_ITS | Clinical Summary ---
Author Organization [facility] Address [address] [place] [address] Phone Care Team Providers Care Mdm Developer Name Role Phone Self-Referred, Patient Unavailable Unavailab Silvio Lynn MD Unavailable [phone] Samanta Webster MD, MPH Unavailable [phone] Sergio Nation MD Primary Care Provider + Syd Graves MD Unavailable [phone] Allergies Active Allergy Reactions Criticality Noted Date Comments Pneumococcal 23-Teagan Ps Vaccine Other (See Comments) 05/08/2018 Significant swelling in arm of injection Medications amLODIPine (NORVASC) 5 MG tablet Take 5 mg by mouth every evening. Active atorvastatin (LIPITOR) 40 MG tablet Take 40 mg by mouth every evening. 11/14/2020 Active losartan (COZAAR) 100 MG tablet TAKE 1 TABLET BY MOUTH EVERY DAY MORE REFILLS REQUIRE LAB WORK Active acetaminophen (TYLENOL) 325 mg tablet Take 2 tablets (650 mg total) by mouth every 6 (six) hours as needed for pain (specific location in comments). 03/08/2025 Active ibuprofen (ADVIL,MOTRIN) 600 MG tablet Take 1 tablet (600 mg total) by mouth every 6 (six) hours as needed for pain (specific location in comments). 03/08/2025 Active levETIRAcetam (KEPPRA XR) 750 mg Tb24 Take 2 tablets (1,500 mg total) by mouth nightly at bedtime. 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, cNX, pM1a) - Unsigned Overview (08/29/2018): metastatic, well differentiated neuroendocrine tumor followed at [facility] Decreased ROM of neck Overview (08/29/2018): mildly decreased ROM of the neck - s/p cervical fusion Encounters Date Type Department Care Team Description 04/29/2025 6:15 PM EST Ancillary Procedure [facility] Radiology [address] [place] [address] [id number] Clyde Ibarra MD Arrived 04/29/2025 Ancillary Orders [facility] [address] [place] [address] [phone] Clyde Ibarra MD 03/29/2025 Telephone [facility] Department of Neurosurgery [address] [place] [address] Jordan Manjarrez PA-C 03/22/2025 Telephone [facility] Neuro Interventional Radiology [address] [place] [address] 92[address] Sridhar Zuñiga PA-C 03/07/2025 Orders Only [facility] Neuro Interventional Radiology [address] [place] [address] 35441 Kathrine Lopez PA-C Subdural hematoma (Primary Dx) 03/06/2025 12:34 PM EDT Anesthesia Event [facility] Neuro Interventional Radiology [address] [place] [address] Kd Benitez, Sp Cooper MD 03/06/2025 Telephone [facility] Neuro Interventional Radiology [address] [place] [address] 05616 Kathrine Lopez PA-C 03/05/2025 Procedure Pass [facility] Radiology [address] [place] [address] 03/04/2025 Procedure Pass [facility] Neuro Interventional Radiology [address] [place] [address] [phone] 03/03/2025 Procedure Pass [facility] Radiology [address] [place] [address] 94018 03/03/2025 Procedure Pass [facility] Radiology [address] [place] [address] [phone] 03/02/2025 Procedure Pass [facility] Radiology [address] [place] [address] 41278 03/02/2025 Procedure Pass [facility] [address] [place] [address] 40134 03/01/2025 2:03 PM EDT Anesthesia Event [facility] Neuro Interventional Radiology [address] [place] [address] 80116 Sarika Romero MBBS, MD 03/01/2025 Procedure Pass [facility] Neuro Interventional Radiology [address] [place] [address] [phone] 02/28/2025 5:44 PM EDT - 03/08/2025 6:34 PM EDT Hospital Encounter [facility] [address] [place] [address] 97[address] Dov Sharma MD Patel, Nirav J, MD Discharge Disposition: Rehab Facility 02/28/2025 Procedure Pass [facility] [address] [place] [address] 02/28/2025 Ancillary Orders [facility] [address] [place] [address] 275[address] Harley Vo PA-C 02/28/2025 Ancillary Orders [facility] [address] [place] [address] Harley Vo PA-C 02/25/2025 12:05 AM EDT Ancillary Procedure [facility] Radiology [address] [place] [address] Harley Vo PA-C 02/25/2025 Ancillary Procedure [facility] Radiology [address] [place] [address] Harley Vo PA-C from Last 3 Months Immunizations Immunization Administration Dates Next Due Influenza High-Dose Trivalen t Preservative Free IM 03/08/2025(Deferred: Patient Refused) Family History Medical History Relation Comments Colon cancer Sister Prostate cancer Neg Hx Relation Status Comments Sister Social History Tobacco Use Types Packs/Day Years [...] file Not on file Not on file Last Filed Vital Signs Vital Sign Reading Time Taken Comments Blood Pressure 114/57 03/08/2025 12:46 PM EDT Pulse 68 03/08/2025 4:00 PM EDT Temperature 36.7 C (98 F) 03/08/2025 12:46 PM EDT Respiratory Rate 18 03/07/2025 10:26 PM EDT Oxygen Saturation 97% 03/08/2025 2:00 PM EDT Inhaled Oxygen Concentration - - Weight 79.8 kg (176 lb) 02/28/2025 5:43 PM EDT Height 177.8 cm (5' 10 ) 02/28/2025 5:43 PM EDT Body Mass Index 25.25 02/28/2025 5:43 PM EDT Plan of Treatment Upcoming Encounters Date Type Department Care Team (Late st Contact Info) Description 09/18/2024 Procedure Pass [facility], Radiology Department 03/07/2025 Procedure Pass [facility] CT Imaging, [place] [address] [place] [address] 06/06/2025 2:00 PM EST Appointment [facility] CT Imaging, [place] [address] [place] [address] Clyde Ibarra MD [address] [address] [email or web address] 06/06/2025 2:30 PM EST Office Visit [facility] Department of Neurosurgery [address] [place] [address] Clyde Ibarra MD [address] [address] [email or web address] 09/16/2025 8:30 AM EDT Appointment [facility], Radiology Department Syd Graves MD [address] [place] [address] [phone] [email or web address] 09/16/2025 9:00 AM EDT Blood Draw DF/BWCC at [facility], Phlebotomy Services [address] [place] [address] Syd Graves MD [address] [place] [address] [phone] [email or web address] 09/19/2025 10:40 AM EDT Office Visit [facility] at [address] [phone] Syd Graves MD [address] [place] [address] [phone] [email or web address] Maintenance Due Date Last Done Comments DEPRESSION SCREENING 1957 RSV VACCINE (1 - 1-dose 75+ series) 12/30/2018 INFLUENZA VACCINE (#1) 2024 , 03/04/2020, 03/02/2019, Additional history exists COVID-19 VACCINE (2024- season) 2025 07/25/2020, 07/04/2020 BLOOD PRESSURE 03/20/2025 09/18/2024 CREATININE LEVEL 03/08/2026 03/08/2025, 01/2025, 03/06/2025, Additional history exists POTASSIUM LEVEL 03/08/2026 03/08/2025, 01/2025, 03/06/2025, Additional history exists Adult Td,Tdap Booster 10/14/2032 10/14/2022 , 05/05/2012, 04/22/2007 HEPATITIS A VACCINES Completed 12/26/2015, 11/26/19 15 ZOSTER VACCINES Completed 06/21/2020, 01/28, 05/14/2009 HIB VACCINES Aged Out No longer eligi ble based on patient's age to complete this topic MENINGOCOCCAL VACCINES (ACWY) Aged Out No longer eligible based on patient's age to complete this topic MENINGOCOCCAL VACCINES (B) Aged Out N o longer eligible based on patient's age to complete this topic Medical Devices Implanted Type Area Inspector Wreath Device Identifier Shelf Expiration Date Model / Serial / Lot System Liquid Ino 1.5ml Embolic Glue Embolization Non-Adhesive 18 6% Evoh Dmso - [id number] Implanted:Qty: 1 on 03/01/2025 by Clyde Ibarra MD at [facility] Right: Brain [employer] [facility] 08/23/2026 [id number]- [id number] / / [id number] Description:RIGHT MMA Coil Embolization 0gtf6um I-Ed Complex Silkysoft - [id number] Implanted:Qty: 1 on 03/01/2025 by Clyde Ibarra MD at [facility] Right: Brain [employer]leaf [facility] 03/29/2027 [id number] / / [id number] Description:RIGHT MMA System Liquid [place] 1.5ml Embolic Glue Embolization Non-Adhesive 18 6% Evoh Dmso - [id number] Implanted:Qty: 1 on 03/01/2025 by Clyde Ibarra MD at [facility] Right: Brain [employer] [facility] 04/23/2027 [id number] / / [id number] Description:RIGHT MMA Device Closure 6fr Celt Plus Acd Bx/5ea - [id number] Implanted:Qty: 1 on 03/01/2025 by Clyde Ibarra MD at [facility] Right: Femoral Artery [employer] 11/22/2027 CLT- [id number] Description:RIGHT DRAFTER GEOPHYSICAL Device Closure 6fr Celt Plus Acd Bx/5ea - [id number] Implanted:Qty: 1 on 03/06/2025 by Dayday Maurer MD at [facility] Right: Femoral Artery [employer] 11/22/2027 CLT- [id number] Coil Embolization 1-35gkg22cn I-Ed Coil Extrasoft - [id number] Implanted:Qty: 1 on 03/06/2025 by Dayday Maurer MD at [facility] Left: Arterial [employer] 05/29/2027 [id number] / / [id number] Description:MMA Coil Embolization 1-80xig89dr I-Ed Coil Extrasoft - [id number] Implanted:Qty: 1 on 03/06/2025 by Dayday Maurer MD at [facility] Left: Arterial [employer] [facility] 05/29/2027 [id number] / / [id number] Description:MMA Coil Embolization 1-10nww25ic I-Ed Coil Extrasoft - [id number] Implanted:Qty: 1 on 03/06/2025 by Dayday Maurer MD at [facility] Left: Arterial [employer] [facility] 05/29/2027 [id number] / / [id number] Description:MMA Coil Embolization 0vlh9gc I-Ed Complex Silkysoft - [id number] Implanted:Qty: 1 on 03/06/2025 by Dayday Maurer MD at [facility] Left: Arterial [employer] 03/29/2027 [id number] / / [id number] Description:MMA Coil Embolization 2umt2cz I-Ed Complex Valerit - [id number] Implanted:Qty: 1 on 03/06/2025 by Dayday Maurer MD at [facility] Left: Arterial [employer] [facility] 08/27/2025 [id number] / / [id number] Description:MMA Procedures Procedure Name Priority Date/Time Associated Diagnosis Comments CT HEAD OUTSIDE (NO INTERPRETATION) Routine 04/29/2025 6:12 PM EST BASIC METABOLIC PANEL (BMP) Routine 03/08/2025 6:23 AM EDT CBC Routine 03/08/2025 6:23 AM EDT BASIC METABOLIC PANEL (BMP) Routine 03/07/2025 7:38 AM EDT CBC Routine 03/07/2025 7:38 AM EDT PTT Timed 03/06/2025 3:25 PM EDT PT-INR Routine 03/06/2025 3:25 PM EDT CBC Routine 03/06/2025 3:25 PM EDT BASIC METABOLIC PANEL (BMP) Routine 03/06/2025 3:25 PM EDT INR ENDOVASCULAR NEUROSURGERY Routine 03/06/2025 2:57 PM EDT AIRWAY PLACEMENT Routine 03/06/2025 1:51 PM EDT PROCALCITONIN Routine 03/06/2025 11:52 AM EDT BASIC METABOLIC PANEL (BMP) Routine 03/06/2025 6:21 AM EDT CBC Routine 03/06/2025 6:21 AM EDT URINE SEDIMENT Routine 03/05/2025 11:16 AM EDT URINALYSIS WITH REFLEX TO URINE CULTURE Routine 03/05/2025 11:16 AM EDT XR CHEST PORTABLE Routine 03/05/2025 11: 15 AM EDT BLOOD CULTURE, ROUTINE Routine 03/05/2025 10:20 AM EDT SEDIMENTATION RATE (ESR) Routine 03/05/2025 10:16 AM EDT C-REACTIVE PROTEIN (CRP) Routine 03/05/2025 10:16 AM EDT PROCALCITONIN Routine 03/05/2025 10:16 AM EDT LACTIC ACID (LACTATE) Routine 03/05/2025 10:16 AM EDT BLOOD CULTURE, ROUTINE Routine 03/05/2025 10:16 AM EDT TYPE AND SCREEN (ABO,RH,ANTIBODY SCREEN) Routine 03/05/2025 8:19 AM EDT PT-INR Routine 03/05/2025 8:19 AM EDT PTT Routine 03/05/2025 8:19 AM EDT BASIC METABOLIC PANEL (BMP) Routine 03/05/2025 8:19 AM EDT CBC Routine 03/05/2025 8:[address] HEAD WITHOUT CONTRAST Routine 03/05/2025 8:[address] HEAD WITHOUT CONTRAST STAT 03/04/2025 12:[address] HEAD WITHOUT CONTRAST Routine 03/03/2025 8:[address] HEAD WITHOUT CONTRAST Imaging within next 6 hours 03/02/2025 5:[address] HEAD WITHOUT CONTRAST Routine 03/02/2025 11:12 AM EDT PT-INR STAT 03/02/2025 10:20 AM EDT PTT STAT 03/02/2025 10:20 AM EDT CBC AND DIFFERENTIAL STAT 03/02/2025 10:20 AM EDT BASIC METABOLIC PANEL (BMP) STAT 03/02/2025 10:20 AM EDT ECG 12-LEAD Routine 03/01/2025 5:54 PM EDT INR ENDOVASCULAR NEUROSURGERY STAT 03/01/2025 5:38 PM EDT AIRWAY PLACEMENT Routine 03/01/2025 2:20 PM EDT PTT Routine 03/01/2025 6:41 AM EDT PT-INR Routine 03/01/2025 6:41 AM EDT CBC Routine 03/01/2025 6:41 AM EDT MAGNESIUM Routine 03/01/2025 6:41 AM EDT BASIC METABOLIC PANEL (BMP) Routine 03/01/2025 6:41 AM EDT URINALYSIS STAT 03/01/2025 12:12 AM EDT VANCOMYCIN RESISTANT ENTEROCOCCI (VRE) RECTAL SCREEN Routine 03/01/2025 12:12 AM EDT MRSA NASAL SCREEN Routine 03/01/2025 12: 12 AM EDT ECG 12-LEAD STAT 03/01/2025 12:09 AM EDT MAGNESIUM Routine 02/28/2025 10:54 PM EDT PTT STAT 02/28/2025 10:54 PM EDT PT-INR STAT 02/28/2025 10:54 PM EDT CBC STAT 02/28/2025 10:54 PM EDT BASIC METABOLIC PANEL (BMP) STAT 02/28/2025 10:[address] HEAD WITHOUT CONTRAST Routine 02/28/2025 7:19 PM EDT PT-INR Routine 02/28/2025 6:35 PM EDT TYPE AND SCREEN (ABO,RH,ANTIBODY SCREEN) STAT 02/28/2025 6:35 PM EDT PT-INR STAT 02/28/2025 6:35 PM EDT MAGNESIUM STAT 02/28/2025 6:35 PM EDT BASIC METABOLIC PANEL (BMP) STAT 02/28/2025 6:35 PM EDT CBC AND DIFFERENTIAL STAT 02/28/2025 6:35 PM EDT ECG 12-LEAD STAT 02/28/2025 5:[address] HEAD OUTSIDE WITH INTERPRETATION OR CONSULT Routine 02/25/2025 12:[address] HEAD OUTSIDE WITH INTERPRETATION OR CONSULT Routine 02/25/2025 12:00 AM EDT from Last 3 Months Results * CT Head Outside (No Interpretation) (04/29/2025 6:12 PM EST) Narrative PERCIPIO_BW - 04/29/2025 6:12 PM EST This study is for PACS storage only and not for interpretation. Clyde Ibarra MD IMG OUTSIDE IMAGING W/OUT INTER PRETATION Final Result [facility] * (ABNORMAL) CBC (03/08/2025 6:23 AM EDT) Only the most recent of7 resultswithin the time period is included. WBC 6.51 4.00 - 11.00 K/uL [facility] RBC 3.73(L) 4.50 - 5.90 M/uL [facility] HGB 11.4(L) 13.5 - 17.5 g/dL [facility] HCT 34.2(L) 41.0 - 53.0 % [facility] PLT 179 150 - 450 K/uL [facility] MCV 91.7 80.0 - 100.0 fL [facility] MCH 30.6 27.0 - 31.0 pg [facility] MCHC 33.3 32.0 - 36.0 g/dL [facility] RDW 14.1 11.5 - 14.5 % [facility] MPV 10.8 8.4 - 12.0 fL [facility] NRBC 0.00 0.00 /100 WBCs [facility] ABSOLUTE NRBC 0.00 0.00 K/uL [facility] Blood 03/08/2025 6:23 AM EDT 03/08/2025 7:14 AM EDT us Dayday Koehler PA-C LAB BLOOD BKR ORDERABLES Fi nal Result [facility] [address] [place] [phone] * (ABNORMAL) Basic metabolic panel (03/08/2025 6:23 AM EDT) Only the most recent of9 resultswithin the time period is included. SODIUM 134(L) 136 - 145 mmol/L [facility] POTASSIUM 3.6 3.4 - 5.1 mmol/L [facility] CHLORIDE 101 98 - 107 mmol/L [facility] CO2 22 22 - 31 mmol/L [facility] BUN 17 6 - 23 mg/dL [facility] CREATININE 0.75 0.50 - 1.20 mg/dL [facility] GLUCOSE 106(H) 70 - 100 mg/dL [facility] CALCIUM 8.5(L) 8.8 - 10.7 mg/dL [facility] EGFR 91 >59 mL/min/1.7 3m2 [facility] Comment:Estimated glomerular filtration rate calculated using the CKD-EPI refit equation. ANION GAP 11 7 - 17 mmol/L [facility] Blood 03/08/2025 6:23 AM EDT 03/08/2025 7:14 AM EDT us Dayday Koehler PA-C LAB BLOOD BKR ORDERABLES Fi nal Result Performing Organization Address [facility] de Phone Number [address] [address] * PTT (03/06/2025 3:25 PM EDT) Only the most recent of5 resultswithin the time period is included. APTT 26.7 24.0 - 37.5 sec [facility] Comment:Emicizumab (Hemlibra ) treatment can result in falsely lowered aPTT test results. Blood 03/06/2025 3:25 PM EDT 03/06/2025 3:29 PM EDT us Priyanka Rahman MD, PhD LAB BLOOD BKR ORDERABLES Final R esult Performing Organization Address [facility] Co de Phone Number [address] [address] * (ABNORMAL) PT-INR (03/06/2025 3:25 PM EDT) Only the most recent of7 resultswithin the time period is included. PT 13.1(H) 10.0 - 13.0 sec [facility] INR 1.2(H) 0.9 - 1.1 [facility] Blood 03/06/2025 3:25 PM EDT 03/06/2025 3:29 PM EDT us Priyanka Rahman MD, PhD LAB BLOOD BKR ORDERABLES Final R esult [facility] [address] [place] [phone] * INR Endovascular Neurosurgery Cerebral/Cervical Intervention (03/06/2025 2:57 PM EDT) Anatomical Region Laterality Modality Interventional R adiography 03/06/2025 3:09 PM EDT Impressions 03/07/2025 12:35 PM EDT Complete occlusion by coil embolization of the left middle meningeal artery, without evidence of nontarget embolization or thromboembolic complications. I was present for the procedure ATTESTATION: I, Clyde Ibarra, as teaching physician have reviewed the images, if any, for this patient's exam, and if necessary, have edited the report originally created by Dayday Maurer. Narrative 03/07/2025 12:35 PM EDT [facility] NEUROENDOVASCULAR SERVICE PROCEDURAL NOTE IMPLANTS: Kaneka 4-10x15 0.010 Infini (x3) and 2x8 0.010 complex infini (x3) coils 6F Celt vascular closure device, MRI/3T safe. PROCEDURE: Transfemoral cerebral angiography Left middle meningeal artery embolization INTERVENTIONAL PROCEDURES: Left middle meningeal artery embolization PRE-OPERATIVE DIAGNOSIS: 1. Right convexity subdural hematoma status post right MMA embolization and skylar hole drainage 2. Left convexity subdural hematoma POST-OPERATIVE DIAGNOSIS: Same CATHETERIZATION OF THE FOLLOWING VESSELS: Left common carotid Left external carotid Left middle meningeal artery ANGIOGRAPHY AND INTERPRETATION OF THE FOLLOWING IMAGES: Right common femoral artery, [place] sheath injection (series 2) Left common carotid artery, cranial (series 3) Left common carotid artery, cervical (series 4) Left external carotid artery, craniofacial (series 5-7) Left middle meningeal artery, superselective microcatheterization (series 9) Left middle meningeal artery frontal branch, superselective microcatheterization (series 10) Left middle meningeal artery artery, postembolization (series 11) Left external carotid artery, postembolization (series 12) Left common carotid artery, postembolization (series 13) Other unrecorded imaging was obtained to allow the placement of the catheter into these vessels. INDICATION: Kwabena Hernandez is an 79-year-old man with bilateral convexity subdural hematomas. He previously underwent skylar hole drainage and embolization of the larger right sided collection. He returns now for left MMA embolization. OPERATORS: Attending: Clyde Ibarra M.D. Fellow: MD Dr. Fred Mccall was present for critical portions of the procedure and available for the entire procedure. INFORMED CONSENT: The procedure, its rationale, risks (including but not limited to stroke, , bleeding, damage to blood vessels, infection, and adverse reaction to medications), benefits, and alternatives were discussed with the patient. All questions were appropriately answered and written informed consent was obtained. The patient understood all the risks and complications related to the procedure and demonstrated willingness to proceed. ANESTHESIA: Initially, monitored anesthesia care was administered by [facility] Anesthesiology staff. This was converted to general anesthesia midway through the case due to excessive movement and sonorous respirations. Continuous hemodynamic and respiratory monitoring was performed, including the use of pulse oximetry. MEDICATIONS: see anesthesiology record START TIME: 1416 STOP TIME: 1310 RADIATION DOSE: Fluoroscopy time: 22.1 minutes Dose: 698.92 mGy Dose area product: 15754.05 ESTIMATED BLOOD LOSS: 20cc MATERIALS EMPLOYED: Micropuncture kit 6 Fr short sheath 6 Fr benchmark 071 guide catheter 5 Fr Penumbra Select Berenstein catheter 0.035 Terumo glidewire 5 Fr Rosalva 125cm intermediate catheter 150cm SL10 microcatheter Synchro standard microwire Kaneka coils listed above 6 Fr Celt closure device 65 ml Omnipaque 240 contrast TECHNIQUE: Informed consent was obtained from the patient, who demonstrated clear understanding of the indications, risks, benefits and alternatives of the procedure. The patient was brought to the neuroangiography suite, placed in a supine position on the angiography table and a pre-procedure safety check was performed per standard protocol. The patient underwent induction of monitored anesthesia care. The patient was prepped and draped in the usual sterile fashion. Intra-arterial access was obtained by placing a 6 Thai short sheath in the right common femoral artery using a 5 Thai micropuncture kit and single wall puncture technique. An [place] arteriogram of the right common femoral artery was obtained. Through the sheath, a 6 Thai Benchmark 071, 5F Berenstein catheter and a 0.035 Terumo glidewire were introduced. The catheter was navigated to the descending aorta where a double flush was performed. The Berenstein catheter was then navigated over the arch. The catheter was then withdrawn to engage the left common carotid artery origin. AP and lateral projections were obtained of the left common carotid artery intracranial and cervical circulation. Using roadmap guidance, the left external carotid artery was selectively catheterized over a Glidewire. The guide catheter was advanced into the external carotid. AP and lateral projections were obtained of the left external carotid craniofacial circulation. Through the guide catheter, a coaxial system with a 5 Thai 125 cm Rosalva intermediate catheter, SL10 150 cm microcatheter and Synchro standard microwire was introduced. Using roadmap guidance, the microcatheter was navigated into the left middle meningeal artery. Angiography was performed. The microcatheter was then advanced over the Synchro wire into the frontal and in a branch. Again super selective angiography was performed. At this point, it became apparent that the patient was not tolerating MAC sedation. He was turned to the anesthesia team and underwent induction of general anesthesia and endotracheal intubation. With the airway secure, we are ready to proceed with embolization. Three Kaneka 4-10x15 0.010 Infini coils were introduced into the frontal branch and proximal parietal branch of the left MMA. The proximal MMA was occluded with three 2x8 0.010 complex infini coils. Control angiography of the middle meningeal artery was performed. The microcatheter and intermediate catheter were removed. Control angiography of the external and common carotid arteries was performed. The guide catheter was removed. A 6 Fr Celt closure device was placed for hemostasis. The puncture site was covered with a sterile dressing. The patient was then extubated and transported to the PACU in stable condition. No immediate complications were encountered. FINDINGS: Right common femoral artery, [place] sheath injection (series 2) An [place] arteriogram of the right common femoral artery demonstrates normal vascularity. The arteriotomy is inferior to a previous closure device, centered over the femoral head and proximal to the femoral bifurcation. Left common carotid artery, cranial (series 3) AP and lateral projections of the left common carotid intracranial circulation demonstrates subtle medialization of the distal cortical vasculature due to mass-effect from the known left convexity subdural hematoma. No aneurysms or other vascular affirmations are noted. The venous phase is normal. Left common carotid artery, cervical (series 4) AP and lateral projections of the left common carotid cervical circulation demonstrate subtle luminal irregularity of the distal common carotid artery at the bifurcation, consistent with atherosclerotic disease. There is brisk filling of the internal and external carotid arteries, with no evidence of flow limitation. Left external carotid artery, craniofacial (series 5-7) Multiple AP and lateral projections of the left external carotid fissure circulation are significantly motion degraded, but appear to demonstrate normal vascularity. Left middle meningeal artery, superselective microcatheterization (series 9) AP and lateral projections of the left middle meningeal artery demonstrate normal vascularity. There are prominent frontal, parietal and squamosal branches. There is a meningocolacrimal artery arising from the proximal frontal anatomy. Left middle meningeal artery frontal branch, superselective microcatheterization (series 10) A superselective injection of the frontal MMA branch demonstrates normal vascularity, with no apparent intracranial collaterals. Left middle meningeal artery artery, postembolization (series 11) AP and lateral projections of the left middle meningeal artery following coil embolization demonstrates complete occlusion of the MMA at its origin. There is contrast extravasation into a venous structure, likely a dural vein. Left external carotid artery, postembolization (series 12) AP and lateral projections of the left external carotid artery following coil embolization demonstrates complete occlusion of the MMA at its origin. There is no further contrast extravasation. Left common carotid artery, postembolization (series 13) AP and lateral projections of the left common carotid intracranial circulation demonstrates complete occlusion by coil embolization of the left middle meningeal artery. There is no evidence of nontarget embolization or distal thromboembolic complication. Procedure Note Clyde Ibarra MD - 03/07/2025 [facility] NEURO[facility] PROCEDURAL NOTE IMPLANTS: Kane[place] 4-10x15 0.010 Infini (x3) and 2x8 0.010 complex infini (x3)coils 6F Celt vascular closure device, MRI/3T safe. PROCEDURE: Transfemoral cerebral angiography Left middle meningeal artery embolization INTERVENTIONAL PROCEDURES: Left middle meningeal artery embolization PRE-OPERATIVE DIAGNOSIS: 1. Right convexity subdural hematoma status post right MMA embolizationand skylar hole drainage 2. Left convexity subdural hematoma POST-OPERATIVE DIAGNOSIS: Same CATHETERIZATION OF THE FOLLOWING VESSELS: Left common carotid Left external carotid Left middle meningeal artery ANGIOGRAPHY AND INTERPRETATION OF THE FOLLOWING IMAGES: Right common femoral artery, [place] sheath injection (series 2) Left common carotid artery, cranial (series 3) Left common carotid artery, cervical (series 4) Left external carotid artery, craniofacial (series 5-7) Left middle meningeal artery, superselective microcatheterization (series9) Left middle meningeal artery frontal branch, superselectivemicrocatheterization (series 10) Left middle meningeal artery artery, postembolization (series 11) Left external carotid artery, postembolization (series 12) Left common carotid artery, postembolization (series 13) Other unrecorded imaging was obtained to allow the placement of thecatheter into these vessels. INDICATION: Kwabena Hernandez is an 79-year-old man with bilateral convexity subduralhematomas. He previously underwent skylar hole drainage and embolization ofthe larger right sided collection. He returns now for left MMAembolization. OPERATORS: Attending: Clyde Ibarra M.D. Fellow: MD Dr. Fred Mccall was present for critical portions of the procedure and availablefor the entire procedure. INFORMED CONSENT: The procedure, its rationale, risks (including but notlimited to stroke, , bleeding, damage to blood vessels, infection,and adverse reaction to medications), benefits, and alternatives werediscussed with the patient. All questions were appropriately answered andwritten informed consent was obtained. The patient understood all therisks and complications related to the procedure and demonstratedwillingness to proceed. ANESTHESIA: [facility]. This was converted to general anesthesia midwaythrough the case due to excessive movement and sonorous respirations.Continuous hemodynamic and respiratory monitoring was performed, includingthe use of pulse oximetry. MEDICATIONS: see anesthesiology record START TIME: 1416 STOP TIME: 1310 RADIATION DOSE: Fluoroscopy time: 22.1 minutes Dose: 698.92 mGy Dose area product: 65928.05 ESTIMATED BLOOD LOSS: 20cc MATERIALS EMPLOYED: Micropuncture kit 6 Fr short sheath 6 Fr benchmark 071 guide catheter 5 Fr Penumbra Select Berenstein catheter 0.035 Terumo glidewire 5 Fr Rosalva 125cm intermediate catheter 150cm SL10 microcatheter Synchro standard microwire Kane[place] coils listed above 6 Fr Celt closure device 65 ml Omnipaque 240 contrast TECHNIQUE: Informed consent was obtained from the patient, who demonstrated clearunderstanding of the indications, risks, benefits and alternatives of theprocedure. The patient was brought to the neuroangiography suite, placedin a supine position on the angiography table and a pre-procedure safetycheck was performed per standard protocol. The patient underwent inductionof monitored anesthesia care. The patient was prepped and draped in theusual sterile fashion. Intra-arterial access was obtained by placing a 6French short sheath in the right common femoral artery using a 5 Frenchmicropuncture kit and single wall puncture technique. An [place] arteriogramof the right common femoral artery was obtained. Through the sheath, a 6 Thai Benchmark 071, 5F Berenstein catheter and a0.035 Terumo glidewire were introduced. The catheter was navigated to thedescending aorta where a double flush was performed. The Berensteincatheter was then navigated over the arch. The catheter was then withdrawnto engage the left common carotid artery origin. AP and lateralprojections were obtained of the left common carotid artery intracranialand cervical circulation. Using roadmap guidance, the left externalcarotid artery was selectively catheterized over a Glidewire. The guidecatheter was advanced into the external carotid. AP and lateralprojections were obtained of the left external carotid craniofacialcirculation. Through the guide catheter, a coaxial system with a 5 Thai 125 cm Sofiaintermediate catheter, SL10 150 cm microcatheter and Synchro standardmicrowire was introduced. Using roadmap guidance, the microcatheter wasnavigated into the left middle meningeal artery. Angiography wasperformed. The microcatheter was then advanced over the Synchro wire intothe frontal and in a branch. Again super selective angiography wasperformed. At this point, it became apparent that the patient was not tolerating MACsedation. He was turned to the anesthesia team and underwent induction ofgeneral anesthesia and endotracheal intubation. With the airway secure, we are ready to proceed with embolization. [place] 4-10x15 0.010 Infini coils were introduced into the frontal branchand proximal parietal branch of the left MMA. The proximal MMA wasoccluded with three 2x8 0.010 complex infini coils. Control angiographyof the middle meningeal artery was performed. The microcatheter andintermediate catheter were removed. Control angiography of the externaland common carotid arteries was performed. The guide catheter was removed. A 6 Fr Celt closure device was placed forhemostasis. The puncture site was covered with a sterile dressing. The patient was then extubated and transported to the PACU in stablecondition. No immediate complications were encountered. FINDINGS: Right common femoral artery, [place] sheath injection (series 2) An [place] arteriogram of the right common femoral artery demonstrates normalvascularity. The arteriotomy is inferior to a previous closure device,centered over the femoral head and proximal to the femoral bifurcation. Left common carotid artery, cranial (series 3) AP and lateral projections of the left common carotid intracranialcirculation demonstrates subtle medialization of the distal corticalvasculature due to mass-effect from the known left convexity subduralhematoma. No aneurysms or other vascular affirmations are noted. Thevenous phase is normal. Left common carotid artery, cervical (series 4) AP and lateral projections of the left common carotid cervical circulationdemonstrate subtle luminal irregularity of the distal common carotidartery at the bifurcation, consistent with atherosclerotic disease. Thereis brisk filling of the internal and external carotid arteries, with noevidence of flow limitation. Left external carotid artery, craniofacial (series 5-7) Multiple AP and lateral projections of the left external carotid fissurecirculation are significantly motion degraded, but appear to demonstratenormal vascularity. Left middle meningeal artery, superselective microcatheterization (series9) AP and lateral projections of the left middle meningeal artery demonstratenormal vascularity. There are prominent frontal, parietal and squamosalbranches. There is a meningocolacrimal artery arising from the proximalfrontal anatomy. Left middle meningeal artery frontal branch, superselectivemicrocatheterization (series 10) A superselective injection of the frontal MMA branch demonstrates normalvascularity, with no apparent intracranial collaterals. Left middle meningeal artery artery, postembolization (series 11) AP and lateral projections of the left middle meningeal artery followingcoil embolization demonstrates complete occlusion of the MMA at itsorigin. There is contrast extravasation into a venous structure, likely adural vein. Left external carotid artery, postembolization (series 12) AP and lateral projections of the left external carotid artery followingcoil embolization demonstrates complete occlusion of the MMA at itsorigin. There is no further contrast extravasation. Left common carotid artery, postembolization (series 13) AP and lateral projections of the left common carotid intracranialcirculation demonstrates complete occlusion by coil embolization of theleft middle meningeal artery. There is no evidence of nontargetembolization or distal thromboembolic complication. IMPRESSION: Complete occlusion by coil embolization of the left middle meningealartery, without evidence of nontarget embolization or thromboemboliccomplications. I was present for the procedure ATTESTATION: I, Clyde Ibarra, as teaching physician have reviewed theimages, if any, for this patient's exam, and if necessary, have edited thereport originally created by Dayday Maurer. us Clyde Ibarra MD IMG IR NEURO Final Result * ANES ETT DOUBLE LUMEN - AIRWAY LDA (03/06/2025 1:51 PM EDT) Only the most recent of2 resultswithin the time period is included. Narrative Kd Benitez DO - 03/06/2025 1:51 PM EDT Kd Benitez DO 03/06/2025 3:00 PM Airway Placement Procedure Note: Patient was not difficult to intubate. Procedure performed by: anesthesiologist Anesthesiologist: Kd Benitez DO Airway procedure initiated at:03/06/2025 1:51 PM and ended at. Personal Protective Equipment: Mask: surgical mask Eye Protection: eye shield Gloves: gloves Mask Ventilation: Quality: not attempted Airway Placement: Technique: video laryngoscopy Details: Blade type: Glidescope Blade size: Mac S3 Video view: grade 1 Video Laryngoscopy was: elective Airway manipulation: laryngeal manipulation Number of attempts: 1 ETT type: cuffed ETT size: 7.0 ETT depth at teeth: 23 Cuff volume (mL): adequacy of cuff pressure checked manually by Dr. Benitez. Tube position confirmed by: bilateral breath sounds and EtCO2 Bite Block: soft Outcomes: Evidence of dental injury? no Complications observed? no Notes: Scant saliva suctioned from oropharynx prior to intubation. No signs of aspiration. Lungs CTA B/L after intubation. us Kd Benitez DO [place] ANESTHESIA Final Resu lt * Procalcitonin (03/06/2025 11:52 AM EDT) Only the most recent of2 resultswithin the time period is included. Procalcitonin 0.20 0.00 - 0.25 ng/mL [facility] Comment: <=0.25 ng/mL: Bacterial pneumonia is unlikely. <0.5 ng/mL: Low likelihood of systemic bacterial infection / sepsis. Localized infection is possible. 0.5-2.0 ng/mL: Systemic bacterial infection / sepsis is possible, but other conditions can induce PCT levels in this range as well (e.g., pancreatitis,severe trauma, circulatory shock, surgery, pedro, inhalation injury.) >2.0 ng/mL: Systemic bacterial infection / sepsis is likely. Additional information can be found in the [employer] Procalcitonin Guidelines, available at http://handbook.mgb.org/3817/Content/4-138-251 Blood 03/06/2025 11:5 2 AM EDT 03/06/2025 12:12 PM EDT Luke Jade PA-C LAB BLOOD BKR ORDERA BLES Final Result Performing Organization Address [facility] de Phone Number [facility] [address] [place] [phone] * (ABNORMAL) Urine Sediment (03/05/2025 11:16 AM EDT) WBC 1 <10 /hpf [facility] RBC 6(H) 0 - 2 /hpf [facility] BACTERIA None None /hpf [facility] SQUAMOUS CELLS None None /hpf [facility] HYALINE CAST 0-2 0 - 2 /lpf [facility] TRANSITIONAL EPITH None None /hpf [facility] GRANULAR CAST 5(A) None /lpf [facility] 03/05/2025 11:1 6 AM EDT 03/05/2025 11:46 AM EDT Jonathan Richard PA-C URINE ORDERABLES Final Result Performing Organization Address [facility] de Phone Number [address] [address] * (ABNORMAL) Urinalysis w/reflex Urine Culture (03/05/2025 11:16 AM EDT) Urine Culture Reflex NO [facility] COLOR Yellow Yellow [facility] CLARITY Clear Clear [facility] GLUCOSE Negative Negative [facility] BILI 1+(A) Negative [facility] Comment:Correlation with milo sma bilirubin is recommended KETONES Trace(A) Negative [facility] SPECIFIC GRAVITY 1.028 1.003 - 1.035 [facility] BLOOD 1+(A) Negative [facility] PH 5.5 4.5 - 8.0 [facility] Protein-UA 1+(A) Negative [facility] [place] [facility] UROBILINOGEN Negative Negative [facility] NITRITE Negative Negative [facility] Leukocyte esterase, ur Negative Negative [facility] Urine (Urine) 03/05/2025 11: 16 AM EDT 03/05/2025 11:46 AM EDT us Jonathan Richard PA-C LAB URINE ORDERABLES Final Res ult Performing Organization Address City/State/[facility] Co de Phone Number [facility] [address] [place] [phone] * XR Chest Portable (03/05/2025 11:15 AM EDT) Anatomical Region Laterality Modality Chest Computed Radiogr aphy 03/05/2025 11:2 3 AM EDT Impressions 03/05/2025 11:25 AM EDT No acute abnormality. Narrative 03/05/2025 11:25 AM EDT XR CHEST PORTABLE Referring clinician's provided indication for this examination in [facility]: Cough COMPARISON: None FINDINGS: Devices/Tubes/Lines: None. Lungs: Subcentimeter right upper lobe calcified granuloma or bone island. The lungs are clear. No focal consolidation or pulmonary edema. Pleura: No pleural effusion or pneumothorax. Heart/Mediastinum: Normal heart and mediastinum. Bones/Soft Tissues: No significant skeletal abnormality. Procedure Note Naga Dupree MD - 03/05/2025 XR CHEST PORTABLE Referring clinician's provided indication for this examination in [facility]:Cough COMPARISON: None FINDINGS: Devices/Tubes/Lines: None. Lungs: Subcentimeter right upper lobe calcified granuloma or bone island.The lungs are clear. No focal consolidation or pulmonary edema. Pleura: No pleural effusion or pneumothorax. Heart/Mediastinum: Normal heart and mediastinum. Bones/Soft Tissues: No significant skeletal abnormality. IMPRESSION: No acute abnormality. us Jonathan Richard PA-C IMG XR CHEST Final Result * Blood Culture, Routine (03/05/2025 10:20 AM EDT) Only the most recent of2 resultswithin the time period is included. Special Requests None 03/05/2025 9:45 AM EDT [facility] BLOOD CULTURE NO GROWTH 5 DAYS 03/10/2025 10:50 AM EDT [facility] Blood (Blood) 03/05/2025 10: 20 AM EDT 03/05/2025 10:44 AM EDT us Jonathan Richard PA-C LAB MICROBIOLOGY CULTURE ORDER CARON Final Result Performing Organization Address [facility] Co de Phone Number [facility] [address] [place] [address] * (ABNORMAL) Sedimentation rate (ESR) (03/05/2025 10:16 AM EDT) [facility] ESR 36(H) 0 - 20 mm/h [facility] Comment:Erythrocyte Sediment ation Rate (ESR) reference range change effective 04/09/2019. Blood 03/05/2025 10:1 6 AM EDT 03/05/2025 10:39 AM EDT us Jonathan Richard PA-C LAB BLOOD BKR ORDERABLES Final Result Performing Organization Address City/[facility]/ZIP Co de Phone Number [facility] [address] [address] * (ABNORMAL) C-Reactive Protein (03/05/2025 10:16 AM EDT) Pathologist [facility] C REACTIVE PROTEIN 167.6(H) 0.0 - 10.0 mg/L [facility] Comment: Blood 03/05/2025 10:1 6 AM EDT 03/05/2025 10:39 AM EDT us Jonathan Richard PA-C LAB BLOOD BKR ORDERABLES Final Result Performing Organization Address City/[facility]/ZIP Co de Phone Number [facility] [address] [place] [phone] * Lactate (03/05/2025 10:16 AM EDT) LACTIC ACID (MMOL/L) 1.5 0.2 - 2.0 mmol/L [facility] Blood 03/05/2025 10:1 6 AM EDT 03/05/2025 10:39 AM EDT us Jonathan Richard PA-C LAB BLOOD BKR ORDERABLES Final Result Performing Organization Address [facility] de Phone Number [facility] [address] [place] [phone] * Type and Screen (ABO,Rh,Antibody Screen) (03/05/2025 8:19 AM EDT) Only the most recent of2 resultswithin the time period is included. Expiration Date of Sample 03/08/2025 11:59 PM 03/05/2025 10:54 AM EDT [facility] Resulting Agency [facility] ABO Type O 03/05/2025 10:54 AM EDT [facility] Rh Type Negative 03/05/2025 10:54 AM EDT [facility] Antibody Screen Negative 03/05/2025 10:54 AM EDT [facility] Blood 03/05/2025 8:19 AM EDT 03/05/2025 9:09 AM EDT us Dayday Koehler PA-C LAB BLOOD BANK TEST ORDERAB LES Final Result Performing Organization Address [facility] Co de Phone Number [facility] [address] [place] [phone] * CT HEAD WITHOUT CONTRAST (03/05/2025 8:03 AM EDT) Anatomical Region Laterality Modality Head Computed Tomogra phy 03/05/2025 12:5 2 PM EDT Impressions 03/05/2025 1:18 PM EDT Compared to prior on 03/04/2025 at 12:37 AM: No significant interval change in volume of bilateral subdural hematomas. Continued decrease in right frontal pneumocephalus. Narrative 03/05/2025 1:[address] HEAD WITHOUT CONTRAST Referring clinician's provided indication for this examination in [facility]: * Subdural hematoma TECHNIQUE: Multidetector-row CT of the head was performed without intravenous contrast using tailored dose modulation techniques. Images were reconstructed in the axial, coronal, and sagittal planes. COMPARISON: CT HEAD WITHOUT CONTRAST FINDINGS: Intracranial: Postoperative findings of right middle meningeal artery embolization and right frontal skylar hole. Slight interval decrease in volume of right frontal pneumocephalus. Overall similar volume of bilateral predominantly frontoparietal subdural hemorrhage in comparison to 03/04/2025 at 12:37 AM. No evidence of evolved territorial infarction. No midline shift or hydrocephalus. Osseous and Extracranial Structures: Similar scattered frontoethmoidal sinus air cell secretions. Middle ear and mastoid air cells are clear. Procedure Note David Lopez MD - 03/05/2025 CT HEAD WITHOUT CONTRAST Referring clinician's provided indication for this examination in [facility]: *Subdural hematoma TECHNIQUE: Multidetector-row CT of the head was performed withoutintravenous contrast using tailored dose modulation techniques. Imageswere reconstructed in the axial, coronal, and sagittal planes. COMPARISON: CT HEAD WITHOUT CONTRAST FINDINGS: Intracranial: Postoperative findings of right middle meningeal arteryembolization and right frontal skylar hole. Slight interval decrease involume of right frontal pneumocephalus. Overall similar volume ofbilateral predominantly frontoparietal subdural hemorrhage in comparisonto 03/04/2025 at 12:37 AM. No evidence of evolved territorial infarction.No midline shift or hydrocephalus. Osseous and Extracranial Structures: Similar scattered frontoethmoidalsinus air cell secretions. Middle ear and mastoid air cells are clear. IMPRESSION: Compared to prior on 03/04/2025 at 12:37 AM: No significant interval change in volume of bilateral subdural hematomas.Continued decrease in right frontal pneumocephalus. us Jonathan Richard PA-C IMG CT HEAD/NECK Final Result * CT HEAD WITHOUT CONTRAST (03/04/2025 12:49 AM EDT) Anatomical Region Laterality Modality Head Computed Tomogra phy 03/04/2025 1:24 AM EDT Impressions 03/04/2025 11:17 AM EDT No significant interval change in bilateral cerebral convexity subdural hemorrhages, with slightly decreased right-sided pneumocephalus. ATTESTATION: Sergio Carlson, as teaching physician have reviewed the images, if any, for this patient's exam, and if necessary, have edited the report originally created by Urbano Loco. 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 Now s/p bilateral burrholes and MMAe for SDH evac 03/01 TECHNIQUE: Multidetector-row CT of the head was performed without intravenous contrast using tailored dose modulation techniques. Images were reconstructed in the axial, coronal, and sagittal planes. COMPARISON: CT head FINDINGS: Brain Parenchyma: No new regions of hypoattenuation with associated mass-effect to suggest an acute or subacute transcortical infarction. No new acute intraparenchymal hemorrhage. Ventricular System and Extra-Axial Spaces: Similar bilateral convexity subdural hemorrhages. Slightly decreased right-sided pneumocephalus. Stable ventricle size and configuration. Basilar cisterns are patent. Osseous and Extracranial Structures: Status post middle meningeal artery embolization. Right skylar hole. No significant paranasal sinus disease. Procedure Note Sergio Recinos MD, CECE - 03/04/2025 CT HEAD WITHOUT CONTRAST Referring clinician's provided indication for this examination in [facility]: *Subdural hematoma Review of the Electronic Medical Record reveals an additional history of:79M, on ASA81(TIA, last taken 02/25), pmhx prostate cancer s/p radicalprostatectomy 2018, neuroendocrine tumor of the terminal ileum with livermetastases (continued observation), p/w 4d L sided weakness w/ headstrike3 weeks ago, found to have b/l chronic convexity SDH R 2cm and L 9mm w/oMLS. Now s/p bilateral burrholes and MMAe for SDH evac 03/01 TECHNIQUE: Multidetector-row CT of the head was performed withoutintravenous contrast using tailored dose modulation techniques. Imageswere reconstructed in the axial, coronal, and sagittal planes. COMPARISON: CT head FINDINGS: Brain Parenchyma: No new regions of hypoattenuation with associatedmass-effect to suggest an acute or subacute transcortical infarction. Nonew acute intraparenchymal hemorrhage. Ventricular System and Extra-Axial Spaces: Similar bilateral convexitysubdural hemorrhages. Slightly decreased right-sided pneumocephalus.Stable ventricle size and configuration. Basilar cisterns are patent. Osseous and Extracranial Structures: Status post middle meningeal arteryembolization. Right skylar hole. No significant paranasal sinus disease. IMPRESSION: No significant interval change in bilateral cerebral convexity subduralhemorrhages, with slightly decreased right-sided pneumocephalus. ATTESTATION: Sergio Carlson, as teaching physician have reviewed theimages, if any, for this patient's exam, and if necessary, have edited thereport originally created by Urbano Loco. us Clyde Ibarra MD IMG CT HEAD/NECK Final Result * CT HEAD WITHOUT CONTRAST (03/03/2025 8:26 AM EDT) Anatomical Region Laterality Modality Head Computed Tomogra phy 03/03/2025 12:3 4 PM EDT Impressions 03/03/2025 12:38 PM EDT Stable bilateral cerebral convexity subdural hemorrhages, right greater than left. Narrative 03/03/2025 12:[address] HEAD WITHOUT CONTRAST Referring clinician's provided indication for this examination in [facility]: * Subdural hematoma TECHNIQUE: Multidetector-row CT of the head was performed without intravenous contrast using tailored dose modulation techniques. Images were reconstructed in the axial, coronal, and sagittal planes. COMPARISON: CT brain 03/02/2025 FINDINGS: Brain Parenchyma: No new regions of hypoattenuation with associated mass-effect to suggest an acute or subacute transcortical infarction is evident. No acute intraparenchymal hemorrhage is appreciated. Ventricular System and Extra-Axial Spaces: The previously seen bilateral cerebral convexity subdural hemorrhages with pneumocephalus on the right are similar in size compared to the most recent CT brain dated 03/02/2025. The ventricles are stable in size. Extracranial Structures: Sequela of prior right middle meningeal artery embolization is again evident. The intraorbital contents are preserved. The visualized paranasal sinuses are clear. The mastoid air cells are clear. Procedure Note Sergio Recinos MD, CECE - 03/03/2025 CT HEAD WITHOUT CONTRAST Referring clinician's provided indication for this examination in [facility]: *Subdural hematoma TECHNIQUE: Multidetector-row CT of the head was performed withoutintravenous contrast using tailored dose modulation techniques. Imageswere reconstructed in the axial, coronal, and sagittal planes. COMPARISON: CT brain 03/02/2025 FINDINGS: Brain Parenchyma: No new regions of hypoattenuation with associatedmass-effect to suggest an acute or subacute transcortical infarction isevident. No acute intraparenchymal hemorrhage is appreciated. Ventricular System and Extra-Axial Spaces: The previously seen bilateralcerebral convexity subdural hemorrhages with pneumocephalus on the rightare similar in size compared to the most recent CT brain dated 03/02/2025.The ventricles are stable in size. Extracranial Structures: Sequela of prior right middle meningeal arteryembolization is again evident. The intraorbital contents are preserved.The visualized paranasal sinuses are clear. The mastoid air cells areclear. IMPRESSION: Stable bilateral cerebral convexity subdural hemorrhages, right greaterthan left. us Clyde Ibarra MD IMG CT HEAD/NECK Final Result * CT HEAD WITHOUT CONTRAST (03/02/2025 5:56 PM EDT) Anatomical Region Laterality Modality Head Computed Tomogra phy 03/02/2025 6:12 PM EDT Impressions 03/03/2025 11:19 AM EDT Compared to 03/02/2025 at 11:03 AM: 1. No significant change in subdural hematomas and recent postoperative changes. ATTESTATION: Dayday Carlson, as teaching physician have reviewed the images, if any, for this patient's exam, and if necessary, have edited the report originally created by Silvio Hall. Narrative 03/03/2025 11:[address] HEAD WITHOUT CONTRAST Referring clinician's provided indication for this examination in [facility]: * Subdural hematoma TECHNIQUE: Multidetector-row CT of the head was performed without intravenous contrast using tailored dose modulation techniques. Images were reconstructed in the axial, coronal, and sagittal planes. COMPARISON: CT HEAD WITHOUT CONTRAST 11:03:01.000; CT HEAD OUTSIDE WITH INTERPRETATION OR CONSULT FINDINGS: Intracranial: Post right middle meningeal artery embolization and right frontal skylar hole evacuation of subdural hematoma, with associated surgical changes. No significant change in residual right convexity subdural hematoma and gas, or left holohemispheric subdural hematoma. Mass effect on the underlying brain and partial effacement of the ventricles. No midline shift. No acute segmental infarct. No transependymal flow of CSF to suggest acute hydrocephalus. Osseous and Extracranial Structures: No significant paranasal sinus disease. No orbital abnormality. Procedure Note Dayday Nino MD, PhD - 03/03/2025 CT HEAD WITHOUT CONTRAST Referring clinician's provided indication for this examination in [facility]: *Subdural hematoma TECHNIQUE: Multidetector-row CT of the head was performed withoutintravenous contrast using tailored dose modulation techniques. Imageswere reconstructed in the axial, coronal, and sagittal planes. COMPARISON: CT HEAD WITHOUT CONTRAST 11:03:01.000; CT HEADOUTSIDE WITH INTERPRETATION OR CONSULT FINDINGS: Intracranial: Post right middle meningeal artery embolization and rightfrontal skylar hole evacuation of subdural hematoma, with associatedsurgical changes. No significant change in residual right convexitysubdural hematoma and gas, or left holohemispheric subdural hematoma. Masseffect on the underlying brain and partial effacement of the ventricles.No midline shift. No acute segmental infarct. No transependymal flow ofCSF to suggest acute hydrocephalus. Osseous and Extracranial Structures: No significant paranasal sinusdisease. No orbital abnormality. IMPRESSION: Compared to 03/02/2025 at 11:03 AM: 1. No significant change in subdural hematomas and recent postoperativechanges. ATTESTATION: Dayday Carlson, as teaching physician have reviewed theimages, if any, for this patient's exam, and if necessary, have edited thereport originally created by Silvio Hall. us Clyde Ibarra MD IMG CT HEAD/NECK Final Result * CT HEAD WITHOUT CONTRAST (03/02/2025 11:12 AM EDT) Anatomical Region Laterality Modality Head Computed Tomogra phy 03/02/2025 11:2 7 AM EDT Impressions 03/02/2025 1:11 PM EDT 1. Decreased size of the right subdural hematoma following skylar hole evacuation and middle meningeal artery embolization. New hyperdense right subcalvarial component likely represents recent hemorrhage. Postoperative changes including right frontal pneumocephalus 2. Similar left subdural hematoma. 3. Similar to slightly increased SDH along the falcine and tentorial leaflet. ATTESTATION: Dayday Carlson, as teaching physician have reviewed the images, if any, for this patient's exam, and if necessary, have edited the report originally created by Tamie Ryder. Narrative 03/02/2025 1:[address] HEAD WITHOUT CONTRAST Referring clinician's provided indication for this examination in [facility]: * Subdural hematoma TECHNIQUE: Multidetector-row CT of the head was performed without intravenous contrast using tailored dose modulation techniques. Images were reconstructed in the axial, coronal, and sagittal planes. COMPARISON: CT HEAD WITHOUT CONTRAST FINDINGS: Brain Parenchyma: Decreased mass-effect on the right cerebral convexity from decreased size of the subdural hematoma. Similar mass effect on the left cerebral convexity. No midline shift, parenchymal hemorrhage, or evidence of acute territorial infarct. Ventricular System and Extra-Axial Spaces: Postsurgical findings following right skylar holes and middle meningeal artery embolization. Decreased size of the right subdural hematoma, now measuring up to 17 mm in greatest thickness, previously 21 mm, when remeasured in similar plane. Small volume pneumocephalus, postsurgical. Hyperdense component likely reflects more recent hemorrhage. Similar left subdural hematoma measuring up to 11 mm in thickness. Hyperdense component in the anterior portion likely reflects more recent hemorrhage, similar to prior. Similar to slightly increased hemorrhage along the falx and tentorial leaflets, with greatest component along the superior falx measuring up to 7 mm. Basal cisterns are patent. No hydrocephalus. Osseous and Extracranial Structures: No significant paranasal sinus disease. No orbital abnormality. Procedure Note Dayday Nino MD, PhD - 03/02/2025 CT HEAD WITHOUT CONTRAST Referring clinician's provided indication for this examination in [facility]: *Subdural hematoma TECHNIQUE: Multidetector-row CT of the head was performed withoutintravenous contrast using tailored dose modulation techniques. Imageswere reconstructed in the axial, coronal, and sagittal planes. COMPARISON: CT HEAD WITHOUT CONTRAST FINDINGS: Brain Parenchyma: Decreased mass-effect on the right cerebral convexityfrom decreased size of the subdural hematoma. Similar mass effect on theleft cerebral convexity. No midline shift, parenchymal hemorrhage, orevidence of acute territorial infarct. Ventricular System and Extra-Axial Spaces: Postsurgical findings followingright skylar holes and middle meningeal artery embolization. Decreased sizeof the right subdural hematoma, now measuring up to 17 mm in greatestthickness, previously 21 mm, when remeasured in similar plane. Smallvolume pneumocephalus, postsurgical. Hyperdense component likely reflectsmore recent hemorrhage. Similar left subdural hematoma measuring up to 11mm in thickness. Hyperdense component in the anterior portion likelyreflects more recent hemorrhage, similar to prior. Similar to slightlyincreased hemorrhage along the falx and tentorial leaflets, with greatestcomponent along the superior falx measuring up to 7 mm. Basal cisterns arepatent. No hydrocephalus. Osseous and Extracranial Structures: No significant paranasal sinusdisease. No orbital abnormality. IMPRESSION: 1. Decreased size of the right subdural hematoma following skylar holeevacuation and middle meningeal artery embolization. New hyperdense rightsubcalvarial component likely represents recent hemorrhage. Postoperativechanges including right frontal pneumocephalus 2. Similar left subdural hematoma. 3. Similar to slightly increased SDH along the falcine and tentorialleaflet. ATTESTATION: IDayday, as teaching physician have reviewed theimages, if any, for this patient's exam, and if necessary, have edited thereport originally created by Tamie Ryder. us Clyde Ibarra MD IM CT HEAD/NECK Final Result * (ABNORMAL) CBC and differential (03/02/2025 10:20 AM EDT) Only the most recent of2 resultswithin the time period is included. WBC 8.82 4.00 - 11.00 K/uL [facility] RBC 4.26(L) 4.50 - 5.90 M/uL [facility] HGB 13.3(L) 13.5 - 17.5 g/dL [facility] HCT 39.9(L) 41.0 - 53.0 % [facility] PLT 154 150 - 450 K/uL [facility] MCV 93.7 80.0 - 100.0 fL [facility] MCH 31.2(H) 27.0 - 31.0 pg [facility] MCHC 33.3 32.0 - 36.0 g/dL [facility] RDW 15.0(H) 11.5 - 14.5 % [facility] MPV 11.0 8.4 - 12.0 fL [facility] NRBC 0.00 0.00 /100 WBCs [facility] ABSOLUTE NRBC 0.00 0.00 K/uL [facility] DIFF METHOD Auto [facility] NEUTS 77.1(H) 48.0 - 76.0 % [facility] LYMPHS 7.3(L) 18.0 - 41.0 % [facility] MONOS 15.2(H) 4.0 - 11.0 % [facility] EOS 0.1 0.0 - 5.0 % [facility] BASOS 0.0 0.0 - 1.5 % [facility] % IMMATURE GRANS 0.3 0.0 - 0.9 % [facility] ABSOLUTE NEUTS 6.80 1.92 - 7.60 K/uL [facility] Comment:1.21-5.39 cells/KL i s the reference range for individuals with the Campbell null phenotype ABSOLUTE LYMPHS 0.64(L) 0.72 - 4.10 K/uL [facility] ABSOLUTE MONOS 1.34(H) 0.16 - 1.10 K/uL [facility] ABSOLUTE EOS 0.01 0.00 - 0.50 K/uL [facility] ABSOLUTE BASOS 0.00 0.00 - 0.15 K/uL [facility] ABS IMMATURE GRANS 0.03 0.00 - 0.09 K/uL [facility] ABSOLUTE NEUTROPHIL COUNT 6.80 1.92 - 7.60 K/uL [facility] Comment: Automated cell count. Manual ANC may differ if performed. 1.21-5.39 cells/KL is the reference range for individuals with the Campbell null phenotype Blood 03/02/2025 10:2 0 AM EDT 03/02/2025 10:29 AM EDT us Clyde Ibarra MD LAB BLOOD BKR ORDERABLES Final Result Performing Organization Address City/State/[facility] Co de Phone Number [facility] [address] [place] [id number] * ECG 12-LEAD (03/01/2025 5:54 PM EDT) Only the most recent of3 resultswithin the time period is included. Systolic Blood Pressure 81 mmHg [facility] Diastolic Blood Pressure 51 mmHg [facility] Ventricular Rate EKG/MIN 65 BPM [facility] Atrial Rate 357 BPM [facility] QRS Duration 102 ms [facility] QT Interval 444 ms [facility] QTC Interval 461 ms [facility] R Wave [place] 29 degrees [facility] T Wave [place] 52 degrees [facility] 03/01/2025 5:54 PM EDT Narrative [facility] - 03/05/2025 7:48 AM EDT Junctional rhythm Incomplete right bundle branch block Nonspecific T wave abnormality Prolonged QT interval or t-u fusion, consider myocardial disease, electrolyte imbalance, or drug effects Abnormal ECG When compared with ECG of 01-Mar-2025 00:09, (unconfirmed) Junctional rhythm has replaced Sinus rhythm Incomplete right bundle branch block is now Present QT has lengthened Electronically signed by NOT CONFIRMED BY, CARDIOLOGY ([id number]), publishing editor Angella Redman ([id number]) on 03/05/2025 7:48:30 AM us Provider [facility] ECG ORDERABLES Final Result [facility] * INR Endovascular Neurosurgery Cerebral/Cervical Intervention (03/01/2025 5:38 PM EDT) Anatomical Region Laterality Modality Interventional R adiography 03/01/2025 5:56 PM EDT Impressions 03/04/2025 11:41 AM EDT 1. Successful Ino 18 and coil embolization of the right middle meningeal artery 2. 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 I was present for the procedures. ATTESTATION: I, Clyde Ibarra, as teaching physician have reviewed the images, if any, for this patient's exam, and if necessary, have edited the report originally created by Jake Jordan. Narrative 03/04/2025 11:41 AM EDT Procedure: DIAGNOSTIC CEREBRAL ANGIOGRAM, MMA EMBOLIZATION AND BURRHOLE DECOMPRESSION IMPLANTS: Coil(s): 2x8 [place] 0.010 SS coil Celt closure device, MRI safe. PROCEDURE: Transfemoral cerebral angiography, right MMA embolization and right sided burrhole for evacuation of chronic subdural hematoma INTERVENTIONAL PROCEDURES: Right MMA embolization PREOPERATIVE DIAGNOSIS: Right>left chronic subdural hematoma POSTOPERATIVE DIAGNOSIS: Same CATHETERIZATION OF THE FOLLOWING VESSELS: Right common carotid Right internal carotid Right external carotid Right MMA ANGIOGRAPHY AND INTERPRETATION OF THE FOLLOWING IMAGES: Right common carotid: cervical Right internal carotid: cerebral Right external carotid: craniofacial Right MMA Right external carotid: craniofacial, post-coil Richt external carotid: craniofacial, post embolization / final Right common carotid: cerebral Right common femoral (sheath injection) INDICATIONS FOR SURGERY: 79M on ASA81 (last dose 9/29) with history of prostate cancer (s/p prostatectomy 2018), neuroendocrine tumor with liver metastases, HTN, and HLD, presenting with 4 days of progressive left-sided weakness following head strike 3 weeks ago. Imaging showed bilateral chronic convexity SDH (R 2 cm, L 9 mm). Planned for right MMA embolization right skylar hole for evacuation of right SDH. SURGEON: Clyde Ibarra MD, who was present for the entire procedure ENVIRONMENTAL HEALTH OFFICER : Dayday Maurer MD, Jake Jordan MD INFORMED CONSENT: The procedure, its rationale, risks (including but not limited to stroke, , bleeding, damage to blood vessels, infection, and adverse reaction to medications), benefits, and alternatives were discussed with the patient. All questions were appropriately answered and written informed consent was obtained. The patient understood all the risks and complications related to the procedure and demonstrated willingness to proceed. ANESTHESIA: General anesthesia. Please consult the anesthetic record for further details. MEDICATIONS: See anesthesiology record START TIME: 14:38 STOP TIME: 17:13 RADIATION DOSE: FLUOROSCOPY TIME: 71.6 minutes DOSE: 3649 mGy DOSE AREA PRODUCT: [id number] muGymsquared ESTIMATED BLOOD LOSS: 15 cc MATERIALS EMPLOYED: Micropuncture kit 6F Femoral access sheath 6F Benchmark catheter 5F Berenstein catheter 0.035 Terumo glidewire 5F Rosalva (115 cm) Whitlock-10 microcatheter Synchro microwire [id number] contrast TECHNIQUE: The patient was brought to the interventional neuroradiology suite, placed in a supine position on the angiography table without complication. A pre-procedure safety check was performed per standard [facility] protocol. The anesthesiologist completed induction and intubation without complication; please refer to the anesthesia record for details of all procedures performed, medications administered, and vital signs monitored. The patient was prepped and draped in the usual sterile fashion. Intra-arterial access was obtained by placing a 6 Thai sheath in the right common femoral artery using a 5 Thai micropuncture kit and single wall puncture technique under ultrasound and fluoroscopic guidance. A hand injection of the right common femoral artery was performed through the sheath. Thereafter a 6 Thai benchmark catheter coaxial with 5 Thai Berenstein diagnostic catheter and 0.035 Terumo Glidewire were used to to access the right common carotid, the right internal carotid, and the right external carotid artery for biplane angiography. At this point the diagnostic catheter and Glidewire were removed and a 115 cm Rosalva 5 Thai catheter coaxial with a Whitlock 10 microcatheter and Synchro microwire were used to carefully select the middle meningeal artery for biplane angiography. Next, 10 mg of verapamil were slowly infused into the middle meningeal artery, and the microwire was reinserted to carefully select the parietal branch for embolization. The microwire was removed, and the microcatheter flushed with DMSO. [place] 18 was infused under continuous fluoroscopic guidance carefully monitoring to avoid any reflux towards the meningolacrimal branch and petrosal branches. Intraoperative control biplane injections were obtained. Then the microcatheter was withdrawn proximally in the middle meningeal artery near the takeoff of the frontal branch, and the frontal branch was taken down by deployment of the following coil: 2x8 [place] 0.010 SS coil. Finally, the middle meningeal artery pedicle was taken down by deployment of Ino 18 under continuous fluoroscopic guidance. There was no concern for reflux of Ino into the meningolachrymal branch, the petrosal branch, or other off-target sites. Postprocedural runs were obtained of the following vessels: Right common carotid: cervical, Right common carotid: cerebral The patient was then repositioned prepped and draped in typical sterile fashion preparation for a right frontal skylar hole. A timeout was performed again in order to confirm the correct side, and 10 cc of 1% lidocaine with epinephrine was injected. An incision was made in the skin along the superior temporal line with a 15 blade and a twist drill was used to create a small skylar hole craniectomy. Dark fluid immediately began to egress from the hole, and the burrhole was irrigated with sterile saline. The area was cleaned and dressed in typical fashion. At the completion of the procedure, the femoral sheath was removed and excellent hemostasis was achieved via deployment of a Celt 7 closure device. A Ulises head CT was obtained to characterize the extent of the Ino embolization, and decompression from clot evacuation. The patient tolerated the procedure without any changes in neurological exam and transferred to the PACU. FINDINGS: RIGHT COMMON FEMORAL ARTERY: The femoral arteriotomy site is centered over the femoral head. A microwire is seen advanced into the common iliac artery. AP and [place] DSA projections of a right common femoral artery injection demonstrates brisk opacification of the right common femoral artery, right external iliac artery, and right common iliac artery. The puncture site is above the femoral bifurcation. There is no evidence of occlusive thromboembolic filling defect, dissection or pseudoaneurysm. RIGHT COMMON CAROTID ARTERY: AP and lateral DSA projections of a right common carotid artery injection demonstrate brisk opacification of the right internal carotid artery, right external carotid artery, right middle cerebral artery, right anterior cerebral artery, and their branches. There are no aneurysms, arteriovenous malformations, arteriovenous shunting, vasospasm, or flow limiting stenoses visualized. Capillary and venous phases are normal. RIGHT INTERNAL CAROTID ARTERY: AP and lateral DSA projections of a right internal carotid artery injection demonstrate brisk opacification of the right internal carotid artery, right middle cerebral artery, right anterior cerebral artery, and their branches. There is a small opthalmic artery and orbital blush visualized. There are no aneurysms, arteriovenous malformations, arteriovenous shunting, vasospasm, or flow limiting stenoses visualized. Capillary and venous phases are normal. RIGHT EXTERNAL CAROTID ARTERY: AP and lateral DSA projections of a right external carotid artery injection demonstrates brisk anterograde opacification of the external carotid artery and its branches, including the facial, lingual, occipital, ascending pharnygeal, internal maxillary, superficial temporal, and middle meningeal arteries. There are no aneurysms, arteriovenous malformations, fistulae, early venous drainage, vasospasm, or thromboembolic filling defects visualized. Capillary and venous phases are normal. RIGHT MIDDLE MENINGEAL ARTERY: AP and lateral DSA projections of a right middle meningeal artery injection demonstrates brisk anterograde opacification of frontal and parietal branches extending over the surface of the convexity. RIGHT EXTERNAL CAROTID ARTERY, POST PROCEDURAL CONTROL: AP and lateral DSA projections of a right external carotid artery injection demonstrates brisk anterograde opacification of the external carotid artery and its branches, including the facial, lingual, occipital, ascending pharnygeal, internal maxillary, and superficial temporal arteries. There is no opacification of the middle meningeal artery and its branches. Capillary and venous phases are otherwise normal. RIGHT COMMON CAROTID ARTERY, POST PROCEDURAL CONTROL: AP and lateral DSA projections of a right common carotid artery injection demonstrates brisk anterograde opacification of the common carotid, internal carotid, external carotid, middle cerebral, and anterior cerebral arteries and their branches. Capillary and venous phases are normal. Choroid blush is well visualized. POSTPROCEDURAL RIGHT COMMON FEMORAL ARTERY: AP and [place] DSA projections of a right common femoral artery injection demonstrates brisk opacification of the right common femoral artery, right external iliac artery, and right common iliac artery. There is brisk runoff down the right internal iliac artery, superficial femoral artery, and deep femoral artery. There is no evidence of contrast extravasation, dissection, pseudoaneurysm, or thromboembolic filling defect. ULISES CT: A postoperative Ulises head CT demonstrates Ino cast appropriately within the right middle meningeal artery with no evidence of Ino reflux into the foramen of Hyrtl, or other evidence of off target embolization. There is now decreased mass effect from the subdural hematoma in comparison to preoperative imaging. Procedure Note Clyde Ibarra MD - 03/04/2025 Procedure: DIAGNOSTIC CEREBRAL ANGIOGRAM, MMA EMBOLIZATION AND BURRHOLEDECOMPRESSION IMPLANTS: Coil(s): 2x8 Kaneka 0.010 SS coil Celt closure device, MRI safe. PROCEDURE: Transfemoral cerebral angiography, right MMA embolization andright sided burrhole for evacuation of chronic subdural hematoma INTERVENTIONAL PROCEDURES: Right MMA embolization PREOPERATIVE DIAGNOSIS: Right>left chronic subdural hematoma POSTOPERATIVE DIAGNOSIS: Same CATHETERIZATION OF THE FOLLOWING VESSELS: Right common carotid Right internal carotid Right external carotid Right MMA ANGIOGRAPHY AND INTERPRETATION OF THE FOLLOWING IMAGES: Right common carotid: cervical Right internal carotid: cerebral Right external carotid: craniofacial Right MMA Right external carotid: craniofacial, post-coil Richt external carotid: craniofacial, post embolization / final Right common carotid: cerebral Right common femoral (sheath injection) INDICATIONS FOR SURGERY: 79M on ASA81 (last dose 02/25) with history ofprostate cancer (s/p prostatectomy 2018), neuroendocrine tumor with livermetastases, HTN, and HLD, presenting with 4 days of progressive left-sidedweakness following head strike 3 weeks ago. Imaging showed bilateralchronic convexity SDH (R 2 cm, L 9 mm). Planned for right MMA embolizationright skylar hole for evacuation of right SDH. SURGEON: Clyde Ibarra MD, who was present for the entire procedure ENVIRONMENTAL HEALTH OFFICER : Dayday Maurer MD, Jake Jordan MD INFORMED CONSENT: The procedure, its rationale, risks (including but notlimited to stroke, , bleeding, damage to blood vessels, infection,and adverse reaction to medications), benefits, and alternatives werediscussed with the patient. All questions were appropriately answered andwritten informed consent was obtained. The patient understood all therisks and complications related to the procedure and demonstratedwillingness to proceed. ANESTHESIA: General anesthesia. Please consult the anesthetic record forfurther details. MEDICATIONS: See anesthesiology record START TIME: 14:38 STOP TIME: 17:13 RADIATION DOSE: FLUOROSCOPY TIME: 71.6 minutes DOSE: 3649 mGy DOSE AREA PRODUCT: 64143 muGymsquared ESTIMATED BLOOD LOSS: 15 cc MATERIALS EMPLOYED: Micropuncture kit 6F Femoral access sheath 6F Benchmark catheter 5F Berenstein catheter 0.035 Terumo glidewire 5F Rosalva (115 cm) Whitlock-10 microcatheter Synchro microwire Inzn106 contrast TECHNIQUE: The patient was brought to the interventional neuroradiology suite, placedin a supine position on the angiography table without complication. Apre-procedure safety check was performed per standard [facility] protocol. Theanesthesiologist completed induction and intubation without complication;please refer to the anesthesia record for details of all proceduresperformed, medications administered, and vital signs monitored. Thepatient was prepped and draped in the usual sterile fashion.Intra-arterial access was obtained by placing a 6 Thai sheath in theright common femoral artery using a 5 Thai micropuncture kit and singlewall puncture technique under ultrasound and fluoroscopic guidance. A handinjection of the right common femoral artery was performed through theeath. Thereafter a 6 Thai benchmark catheter coaxial with 5 Thai Berensteindiagnostic catheter and 0.035 Terumo Glidewire were used to to access theright common carotid, the right internal carotid, and the right externalcarotid artery for biplane angiography. At this point the diagnostic catheter and Glidewire were removed and a 115cm Rosalva 5 Thai catheter coaxial with a Whitlock 10 microcatheter andSynchro microwire were used to carefully select the middle meningealartery for biplane angiography. Next, 10 mg of verapamil were slowlyinfused into the middle meningeal artery, and the microwire was reinsertedto carefully select the parietal branch for embolization. The microwirewas removed, and the microcatheter flushed with DMSO. Saint John 18 was infusedunder continuous fluoroscopic guidance carefully monitoring to avoid anyreflux towards the meningolacrimal branch and petrosal branches.Intraoperative control biplane injections were obtained. Then themicrocatheter was withdrawn proximally in the middle meningeal artery nearthe takeoff of the frontal branch, and the frontal branch was taken downby deployment of the following coil: 2x8 Kaneka 0.010 SS coil. Finally,the middle meningeal artery pedicle was taken down by deployment of Onyx18 under continuous fluoroscopic guidance. There was no concern for refluxof Saint John into the meningolachrymal branch, the petrosal branch, or otheroff-target sites. Postprocedural runs were obtained of the followingvessels: Right common carotid: cervical, Right common carotid: cerebral The patient was then repositioned prepped and draped in typical sterilefashion preparation for a right frontal skylar hole. A timeout was performedagain in order to confirm the correct side, and 10 cc of 1% lidocaine withepinephrine was injected. An incision was made in the skin along thesuperior temporal line with a 15 blade and a twist drill was used tocreate a small skylar hole craniectomy. Dark fluid immediately began toegress from the hole, and the burrhole was irrigated with sterile saline.The area was cleaned and dressed in typical fashion. At the completion of the procedure, the femoral sheath was removed andexcellent hemostasis was achieved via deployment of a Celt 7 closuredevice. A Ulises head CT was obtained to characterize the extent of the Onyxembolization, and decompression from clot evacuation. The patienttolerated the procedure without any changes in neurological exam andtransferred to the PACU. FINDINGS: RIGHT COMMON FEMORAL ARTERY: The femoral arteriotomy site is centered overthe femoral head. A microwire is seen advanced into the common iliacartery. AP and [place] DSA projections of a right common femoral arteryinjection demonstrates brisk opacification of the right common femoralartery, right external iliac artery, and right common iliac artery. Thepuncture site is above the femoral bifurcation. There is no evidence ofocclusive thromboembolic filling defect, dissection or pseudoaneurysm. RIGHT COMMON CAROTID ARTERY: AP and lateral DSA projections of a rightcommon carotid artery injection demonstrate brisk opacification of theright internal carotid artery, right external carotid artery, right middlecerebral artery, right anterior cerebral artery, and their branches. Thereare no aneurysms, arteriovenous malformations, arteriovenous shunting,vasospasm, or flow limiting stenoses visualized. Capillary and venousphases are normal. RIGHT INTERNAL CAROTID ARTERY: AP and lateral DSA projections of a rightinternal carotid artery injection demonstrate brisk opacification of theright internal carotid artery, right middle cerebral artery, rightanterior cerebral artery, and their branches. There is a small opthalmicartery and orbital blush visualized. There are no aneurysms, arteriovenousmalformations, arteriovenous shunting, vasospasm, or flow limitingstenoses visualized. Capillary and venous phases are normal. RIGHT EXTERNAL CAROTID ARTERY: AP and lateral DSA projections of a rightexternal carotid artery injection demonstrates brisk anterogradeopacification of the external carotid artery and its branches, includingthe facial, lingual, occipital, ascending pharnygeal, internal maxillary,superficial temporal, and middle meningeal arteries. There are noaneurysms, arteriovenous malformations, fistulae, early venous drainage,vasospasm, or thromboembolic filling defects visualized. Capillary andvenous phases are normal. RIGHT MIDDLE MENINGEAL ARTERY: AP and lateral DSA projections of a rightmiddle meningeal artery injection demonstrates brisk anterogradeopacification of frontal and parietal branches extending over the surfaceof the convexity. RIGHT EXTERNAL CAROTID ARTERY, POST PROCEDURAL CONTROL: AP and lateral DSAprojections of a right external carotid artery injection demonstratesbrisk anterograde opacification of the external carotid artery and itsbranches, including the facial, lingual, occipital, ascending pharnygeal,internal maxillary, and superficial temporal arteries. There is noopacification of the middle meningeal artery and its branches. Capillaryand venous phases are otherwise normal. RIGHT COMMON CAROTID ARTERY, POST PROCEDURAL CONTROL: AP and lateral DSAprojections of a right common carotid artery injection demonstrates briskanterograde opacification of the common carotid, internal carotid,external carotid, middle cerebral, and anterior cerebral arteries andtheir branches. Capillary and venous phases are normal. Choroid blush iswell visualized. POSTPROCEDURAL RIGHT COMMON FEMORAL ARTERY: AP and [place] DSA projections ofa right common femoral artery injection demonstrates brisk opacificationof the right common femoral artery, right external iliac artery, and rightcommon iliac artery. There is brisk runoff down the right internal iliacartery, superficial femoral artery, and deep femoral artery. There is noevidence of contrast extravasation, dissection, pseudoaneurysm, orthromboembolic filling defect. ULISES CT: A postoperative Ulises head CT demonstrates Ino cast appropriatelywithin the right middle meningeal artery with no evidence of Saint John refluxinto the foramen of Hyrtl, or other evidence of off target embolization.There is now decreased mass effect from the subdural hematoma incomparison to preoperative imaging. IMPRESSION: 1. Successful Ino 18 and coil embolization of the right middle meningealartery 2. 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 I was present for the procedures. ATTESTATION: I, Clyde Ibarra, as teaching physician have reviewed theimages, if any, for this patient's exam, and if necessary, have edited thereport originally created by Jake Jordan. us Clyde Ibarra MD IMG IR NEURO Final Result * Magnesium (03/01/2025 6:41 AM EDT) Only the most recent of3 resultswithin the time period is included. MAGNESIUM 2.2 1.7 - 2.6 mg/dL [facility] Blood 03/01/2025 6:41 AM EDT 03/01/2025 7:02 AM EDT Dov Sharma MD LAB BLOOD BKR ORDERABLES Fin al Result Performing Organization Address City/[facility]/[place] [address] * MRSA Nasal Screen (03/01/2025 12:12 AM EDT) Special Requests None 02/28/2025 10:46 PM EDT [facility] MRSA Nasal Culture NO METHICILLIN RESISTANT STAPHYLOCOCCUS AUREUS ISOLATED 03/02/2025 6:40 AM EDT [facility] Other (Nasal) 03/01/2025 12: 12 AM EDT 03/01/2025 7:08 AM EDT us Dov Sharma MD LAB MICROBIOLOGY CULTURE ORD ERABLES Final Result Performing Organization Address [facility] Co de Phone Number [facility] [employer] [address] [place] [phone] * Vancomycin Resistant Enterococci (VRE), Rectal Screen (03/01/2025 12:12 AM EDT) Special Requests None 02/28/2025 10:46 PM EDT [facility] VRE Rectal Culture NO VANCOMYCIN RESISTANT ENTEROCOCCI ISOLATED 03/02/2025 6:34 AM EDT [facility] Other (Rectal) 03/01/2025 12 :12 AM EDT 03/01/2025 7:21 AM EDT Dov Sharma MD LAB MICROBIOLOGY CULTURE ORD ERABLES Final Result Performing Organization Address [facility] de Phone Number [facility] [address] [place] [phone] * (ABNORMAL) Urinalysis (03/01/2025 12:12 AM EDT) COLOR LT YELLOW(A) Yellow [facility] CLARITY Clear Clear [facility] GLUCOSE Negative Negative [facility] BILI Negative Negative [facility] KETONES Negative Negative [facility] SPECIFIC GRAVITY 1.019 1.003 - 1.035 [facility] BLOOD Negative Negative [facility] PH 5.5 4.5 - 8.0 [facility] Protein-UA Negative Negative [facility] UROBILINOGEN Negative Negative [facility] NITRITE Negative Negative [facility] Leukocyte esterase, ur Negative Negative [facility] Urine (Urine) 03/01/2025 12: 12 AM EDT 03/01/2025 12:19 AM EDT us Dov Sharma MD LAB URINE ORDERABLES Final R esult Performing Organization Address [facility] de Phone Number [address] [phone] * CT HEAD WITHOUT CONTRAST (02/28/2025 7:19 PM EDT) Anatomical Region Laterality Modality Head Computed Tomogra phy 02/28/2025 7:38 PM EDT Impressions 02/28/2025 7:40 PM EDT Large bilateral subdural hemorrhages, acute on chronic hemorrhage. Similar to the previous exam. No midline shift. Narrative 02/28/2025 7:[address] HEAD WITHOUT CONTRAST Referring clinician's provided indication for this examination in [facility]: * Subdural hematoma; Subacute subdural hematoma on 02/24 in [place], presenting for stability scan status post dexamethasone X3. TECHNIQUE: CT of the head was performed without intravenous contrast using tailored dose modulation techniques. Images were reconstructed in the axial, coronal, and sagittal planes. COMPARISON: CT HEAD OUTSIDE WITH INTERPRETATION OR CONSULT FINDINGS: Brain Parenchyma: There is effacement of the sulci bilaterally due to the subdural hemorrhage. No focal parenchymal hemorrhage or ischemia. No mass-effect or midline shift. Ventricular System and Extra-Axial Spaces: Large bilateral subdural hemorrhages are present along the convexity. Largest right subdural hemorrhage measures 2.6 in meters wide. It is predominantly low in density but there is mild hyperdense fluid as well, acute on chronic hemorrhage. The left subdural hemorrhage along the entire left convexity is dense, more recent hemorrhage, measuring about 12 mm wide. There is acute hemorrhage in the left frontal subdural region. Similar to the previous exam. The ventricles are normal in size. Osseous and Extracranial Structures: No acute osseous abnormality.No significant paranasal sinus disease. No orbital abnormality. Procedure Note Karmen Rosario MD, PhD - 02/28/2025 CT HEAD WITHOUT CONTRAST Referring clinician's provided indication for this examination in [facility]: *Subdural hematoma; Subacute subdural hematoma on 02/24 in [place],presenting for stability scan status post dexamethasone X3. TECHNIQUE: CT of the head was performed without intravenous contrast usingtailored dose modulation techniques. Images were reconstructed in theaxial, coronal, and sagittal planes. COMPARISON: CT HEAD OUTSIDE WITH INTERPRETATION OR CONSULT FINDINGS: Brain Parenchyma: There is effacement of the sulci bilaterally due to thesubdural hemorrhage. No focal parenchymal hemorrhage or ischemia. Nomass-effect or midline shift. Ventricular System and Extra-Axial Spaces: Large bilateral subduralhemorrhages are present along the convexity. Largest right subduralhemorrhage measures 2.6 in meters wide. It is predominantly low in densitybut there is mild hyperdense fluid as well, acute on chronic hemorrhage.The left subdural hemorrhage along the entire left convexity is dense,more recent hemorrhage, measuring about 12 mm wide. There is acutehemorrhage in the left frontal subdural region. Similar to the previousexam. The ventricles are normal in size. Osseous and Extracranial Structures: No acute osseous abnormality.Nosignificant paranasal sinus disease. No orbital abnormality. IMPRESSION: Large bilateral subdural hemorrhages, acute on chronic hemorrhage. Similarto the previous exam. No midline shift. us Harley Castro Tavo BARON IMG CT HEAD/NECK Fin al Result * CT Head Outside With Interpretation or Consult (02/25/2025 12:05 AM EDT) 02/28/2025 6:50 PM EDT Impressions [facility] - 02/28/2025 6:54 PM EDT 1. Large bilateral subdural fluid collections, heterogeneous density, likely mixed acute and chronic subdural hemorrhage. 2. Poor definition of the spears-white matter junction may be due to effacement of the sulci resulting in edema. Narrative [facility] - 02/28/2025 6:[address] HEAD OUTSIDE WITH INTERPRETATION OR CONSULT Referring clinician's provided indication for this examination in [facility]: Fall TECHNIQUE: Multidetector-row CT of the head was performed without administration of intravenous contrast. Images were reconstructed in the axial, coronal, and sagittal planes. COMPARISON: None FINDINGS: Brain Parenchyma: Poorly defined, slightly heterogeneous with poor identification of the spears-white matter junction, may be generalized edema. No acute hemorrhage. No mass-effect or midline shift. Ventricular System and Extra-Axial Spaces: Large bilateral subdural fluid collections are present. They are heterogeneous density, likely mixed acute and chronic subdural hemorrhage. There is adjacent effacement of the sulci. Osseous and Extracranial Structures: No acute osseous abnormality. No significant sinus opacification. Procedure Note Karmen Rosario MD, PhD - 02/28/2025 CT HEAD OUTSIDE WITH INTERPRETATION OR CONSULT Referring clinician's provided indication for this examination in [facility]:Fall TECHNIQUE: Multidetector-row CT of the head was performed withoutadministration of intravenous contrast. Images were reconstructed in theaxial, coronal, and sagittal planes. COMPARISON: None FINDINGS: Brain Parenchyma: Poorly defined, slightly heterogeneous with pooridentification of the spears-white matter junction, may be generalizededema. No acute hemorrhage. No mass-effect or midline shift. Ventricular System and Extra-Axial Spaces: Large bilateral subdural fluidcollections are present. They are heterogeneous density, likely mixedacute and chronic subdural hemorrhage. There is adjacent effacement of thesulci. Osseous and Extracranial Structures: No acute osseous abnormality. Nosignificant sinus opacification. IMPRESSION: 1. Large bilateral subdural fluid collections, heterogeneous density,likely mixed acute and chronic subdural hemorrhage. 2. Poor definition of the spears-white matter junction may be due toeffacement of the sulci resulting in edema. us Harley Vo PA-C IMG OUTSIDE IMAGING W/ INTERPRETATION Final Result [facility] [address] [place] [address] * CT Head Outside With Interpretation or Consult (02/25/2025 12:00 AM EDT) 02/28/2025 6:50 PM EDT Impressions [facility] - 02/28/2025 6:54 PM EDT 1. Large bilateral subdural fluid collections, heterogeneous density, likely mixed acute and chronic subdural hemorrhage. 2. Poor definition of the spears-white matter junction may be due to effacement of the sulci resulting in edema. Narrative [facility] - 02/28/2025 6:[address] HEAD OUTSIDE WITH INTERPRETATION OR CONSULT Referring clinician's provided indication for this examination in [employer]: Fall TECHNIQUE: Multidetector-row CT of the head was performed without administration of intravenous contrast. Images were reconstructed in the axial, coronal, and sagittal planes. COMPARISON: None FINDINGS: Brain Parenchyma: Poorly defined, slightly heterogeneous with poor identification of the spears-white matter junction, may be generalized edema. No acute hemorrhage. No mass-effect or midline shift. Ventricular System and Extra-Axial Spaces: Large bilateral subdural fluid collections are present. They are heterogeneous density, likely mixed acute and chronic subdural hemorrhage. There is adjacent effacement of the sulci. Osseous and Extracranial Structures: No acute osseous abnormality. No significant sinus opacification. Procedure Note Karmen Rosario MD, PhD - 02/28/2025 CT HEAD OUTSIDE WITH INTERPRETATION OR CONSULT Referring clinician's provided indication for this examination in [employer]:Fall TECHNIQUE: Multidetector-row CT of the head was performed withoutadministration of intravenous contrast. Images were reconstructed in theaxial, coronal, and sagittal planes. COMPARISON: None FINDINGS: Brain Parenchyma: Poorly defined, slightly heterogeneous with pooridentification of the spears-white matter junction, may be generalizededema. No acute hemorrhage. No mass-effect or midline shift. Ventricular System and Extra-Axial Spaces: Large bilateral subdural fluidcollections are present. They are heterogeneous density, likely mixedacute and chronic subdural hemorrhage. There is adjacent effacement of thesulci. Osseous and Extracranial Structures: No acute osseous abnormality. Nosignificant sinus opacification. IMPRESSION: 1. Large bilateral subdural fluid collections, heterogeneous density,likely mixed acute and chronic subdural hemorrhage. 2. Poor definition of the spears-white matter junction may be due toeffacement of the sulci resulting in edema. [facility] OUTSIDE IMAGING W/ INTERPRETATION Final Result Performing Organization Address City/State/[facility] Co de Phone Number [address] [address] from Last 3 Months Insurance [facility] MEDICARE PPO BLUE REPLACEMENT [facility] MEDICARE PPO BLUE REPLACEMENT [facility] MEDICARE PPO BLUE REPLACEMENT [facility] MEDICARE PPO BLUE REPLACEMENT [facility] MEDICARE PPO BLUE REPLACEMENT [facility] MEDICARE PPO BLUE REPLACEMENT [facility] MEDICARE PPO BLUE REPLACEMENT [facility] MEDICARE PPO BLUE REPLACEMENT [place] MED[place] P[place] BLUE REPLACEMENT Advance Directives For more information, please contact: [phone] (9AM - 5PM [facility], Tuesday-Tuesday) Documents on File Type Date Recorded 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 07/20/2018 * Full Code (Latest Code Status on File) Date Activated Date Inactivated Comments 02/28/2025 10:16 PM Question Answer Comments Code Status Confirmed With: Patient Code Status Communicated To: Inpatient Attending * Full Code (Presumed) Date Activated Date Inactivated Comments 09/07/2018 10:03 AM 09/08/2018 3:07 PM Care Teams Mdm Developer Relationship Specialty Start Date End Date Sergio Nation MD [address] [place] [address] PCP - General Internal Medicine 09/21/22 Self-Referred, Patient 07/20/18 Silvio Currie MD [address] [place] [address] Referring Physician Urology 07/20/18 Samanta Webster MD, MPH [address] [place] [address] [email or web address] Medical Oncology 08/07/18 Syd Graves MD [address] [place] [phone] [email or web address] Primary Oncologist Medical Oncology 09/17/24 Additional Source Comments The information contained in this document represents components of the legal health record. It is not the complete legal health record.[facility]
--- OUTSIDE RECORDS SUMMARY | 2025-04-29 18:57 | XMS_ITS | Encounter Summary ---
Author Organization [facility] Address [address] [place] [address] Phone Care Team Providers Care Molder Foam Rubber Name Role Phone Self-Referred, Patient Unavailable Unavailab Silvio Lynn MD Unavailable [phone] Samanta Webster MD, MPH Unavailable [phone] Sergio Nation MD Primary Care Provider + Syd Graves MD Unavailable [phone] Encounter Details Date Type Department Care Team (Late st Contact Info) Description 03/03/2025 Procedure Pass [facility] Radiology [address] [place] [address] Social History Tobacco Use Types Packs/Day Years [...] st Contact Info) Description 09/18/2024 Procedure Pass [facility], Radiology Department 03/07/2025 Procedure Pass [facility] CT Imaging, [place] [address] [place] [address] 06/06/2025 2:00 PM EST Appointment [facility] CT Imaging, [place] [address] [place] [address] Clyde Ibarra MD [address] [address] [email or web address] 06/06/2025 2:30 PM EST Office Visit [facility] Department of Neurosurgery 60 [place] [address] Clyde Ibarra MD [address] [address] [email or web address] 09/16/2025 8:30 AM EDT Appointment [facility], Radiology Department Syd Graves MD [address] [place] [phone] [email or web address] 09/16/2025 9:00 AM EDT Blood Draw DF/BWCC at [facility], Phlebotomy Services [address] [place] [address] Syd Graves MD [address] [place] [phone] [email or web address] 09/19/2025 10:40 AM EDT Office Visit [facility] at [address] [address] Syd Graves MD [address] [place] [phone] [email or web address] documented as of this encounter Visit Diagnoses Not on filedocumented in this encounter Care Teams Molder Foam Rubber Relationship Specialty Start Date End Date Sergio Nation MD [address] [place] [address] PCP - General Internal Medicine 09/21/22 Self-Referred, Patient 07/20/18 Silvio Currie MD [address] [place] [address] Referring Physician Urology 07/20/18 Samanta Webster MD, MPH [address] [place] [address] [email or web address] Medical Oncology 08/07/18 Syd Graves MD 20 [place] [address] [email or web address] [email or web address] Primary Oncologist Medical Oncology 09/17/24 documented as of this encounter Additional Source Comments The information contained in this document represents components of the legal health record. It is not the complete legal health record.[facility]
--- OUTSIDE RECORDS SUMMARY | 2025-04-29 18:57 | XMS_ITS | Encounter Summary ---
Author Organization [facility] Address [address] [facility] [address] [place] [address] Phone Care Team Providers Care Boom Stick Worker Name Role Phone Tapan Ortega MD Primary Care Provide r Self-Referred, Patient Unavailable Unavailab Silvio Lynn MD Unavailable [phone] Samanta Webster MD, MPH Unavailable [phone] Sergio Nation MD Primary Care Provider + Syd Graves MD Unavailable [phone] Encounter Details Date Type Department Care Team (Late st Contact Info) Description 04/27/2021 Procedure Pass [facility], Radiology Department Social History Tobacco Use [...] Contact Info) Description 09/18/2024 Procedure Pass [facility], Radiology Department 03/07/2025 Procedure Pass [facility] CT Imaging, [place] [address] [place] [address] 06/06/2025 2:00 PM EST Appointment [facility] CT Imaging, [place] [address] [place] [address] Clyde Ibrara MD [address] [address] [email or web address] 06/06/2025 2:30 PM EST Office Visit [facility] Department of Neurosurgery 60 [place] [address] Clyde Ibarra MD [address] [address] [email or web address] 09/16/2025 8:30 AM EDT Appointment [facility], Radiology Department Syd Graves MD [address] [place] [phone] [email or web address] 09/16/2025 9:00 AM EDT Blood Draw DF/BWCC at [facility], Phlebotomy Services [address] [place] [address] Syd Graves MD [address] [place] [phone] [email or web address] 09/19/2025 10:40 AM EDT Office Visit [facility] at [address] [address] Syd Graves MD [address] [place] [phone] [email or web address] documented as of this encounter Visit Diagnoses Not on filedocumented in this encounter Care Teams Boom Stick Worker Relationship Specialty Start Date End Date Tapan Ortega MD [address] [place] [address] [address] [place] [address] PCP - General Internal Medicine 03/24/18 09/20/22 Sergio Nation MD [address] [facility] [address] [place] [address] PCP - General Internal Medicine 09/21/22 Self-Referred, Patient 07/20/18 Silvio Currie MD 100 [facility] [address] [place] [address] Referring Physician Urology 07/20/18 Samanta Webster MD, MPH [address] [place], [place] [address] [address] [place] [address] [email or web address] Medical Oncology 08/07/18 Syd Graves MD [address] [place] [phone] [email or web address] Primary Oncologist Medical Oncology 09/17/24 documented as of this encounter Additional Source Comments The information contained in this document represents components of the legal health record. It is not the complete legal health record.[facility]
--- OUTSIDE RECORDS SUMMARY | 2025-04-29 18:57 | XMS_ITS | Encounter Summary ---
Author Organization [facility] Address [address] [facility] [address] [place] [address] Phone Care Team Providers Care Online Content Editor Name Role Phone Tapan Ortega MD Primary Care Provide r Self-Referred, Patient Unavailable Unavailab Silvio Lynn MD Unavailable [phone] Samanta Webster MD, MPH Unavailable [phone] Sergio Nation MD Primary Care Provider + Syd Graves MD Unavailable [phone] Encounter Details Date Type Department Care Team (Late st Contact Info) Description 05/12/2018 Procedure Pass [facility]'s Radiology [address] [place] [address] Social History Tobacco Use Types Packs/Day Years [...] st Contact Info) Description 09/18/2024 Procedure Pass [facility], Radiology Department 03/07/2025 Procedure Pass [facility] CT Imaging, [place] [address] [place] [address] 06/06/2025 2:00 PM EST Appointment [facility] CT Imaging, [place] [address] [place] [address] Clyde Ibarra MD [address] [address] [email or web address] 06/06/2025 2:30 PM EST Office Visit [facility] Department of Neurosurgery 60 [place] [address] Clyde Ibarra MD [address] [address] [email or web address] 09/16/2025 8:30 AM EDT Appointment [facility], Radiology Department Syd Graves MD [address] [place] [phone] [email or web address] 09/16/2025 9:00 AM EDT Blood Draw DF/BWCC at [facility], Phlebotomy Services [address] [place] [address] Syd Graves MD [address] [place] [phone] [email or web address] 09/19/2025 10:40 AM EDT Office Visit [facility] at [address] [address] Syd Graves MD [address] [place] [phone] [email or web address] documented as of this encounter Visit Diagnoses Not on filedocumented in this encounter Additional Health Concerns Infection Onset Date Last Indicated Resolved Time CoV-Risk 03/12/2021 03/12/2021 03/22/2021 1:22 AM EDT documented as of this encounter Care Teams Online Content Editor Relationship Specialty Start Date End Date Tapan Ortega MD [address] [place] [address] [address] [place] [address] PCP - General Internal Medicine 03/24/18 09/20/22 Sergio Nation MD [address] [facility] [address] [place] [address] PCP - General Internal Medicine 09/21/22 Self-Referred, Patient 07/20/18 Silvio Currie MD [address] [facility] [address] [place] [address] Referring Physician Urology 07/20/18 Samanta Webster MD, MPH [address] [facility] [address] [place] [address] [email or web address] Medical Oncology 08/07/18 Syd Graves MD 20 [place] [address] [email or web address] Primary Oncologist Medical Oncology 09/17/24 documented as of this encounter Additional Source Comments The information contained in this document represents components of the legal health record. It is not the complete legal health record.[facility]
--- OUTSIDE RECORDS SUMMARY | 2025-04-29 18:57 | XMS_ITS | Encounter Summary ---
Author Organization [facility] Address [address] [place] [address] Phone Care Team Providers Care Roof Plumber Name Role Phone Self-Referred, Patient Unavailable Unavailab Silvio Lynn MD Unavailable [phone] Samanta Webster MD, MPH Unavailable [phone] Sergio Nation MD Primary Care Provider + Syd Graves MD Unavailable [phone] Encounter Details Date Type Department Care Team (Late st Contact Info) Description 03/03/2025 Procedure Pass [facility] Radiology 75 [place] [address] Social History Tobacco Use Types Packs/Day Years [...] st Contact Info) Description 09/18/2024 Procedure Pass [facility], Radiology Department 03/07/2025 Procedure Pass [facility] CT Imaging, [place] [address] [place] [address] 06/06/2025 2:00 PM EST Appointment [facility] CT Imaging, [place] [address] [place] [address] Clyde Ibarra MD [address] [address] [email or web address] 06/06/2025 2:30 PM EST Office Visit [facility] Department of Neurosurgery 60 [place] [address] Clyde Ibarra MD [address] [address] [email or web address] 09/16/2025 8:30 AM EDT Appointment [facility], Radiology Department Syd Graves MD [address] [place] [phone] [email or web address] 09/16/2025 9:00 AM EDT Blood Draw DF/BWCC at [facility], Phlebotomy Services [address] [place] [address] Syd Graves MD [address] [place] [phone] [email or web address] 09/19/2025 10:40 AM EDT Office Visit [facility] at [address] [address] Syd Graves MD [address] [place] [phone] [email or web address] documented as of this encounter Visit Diagnoses Not on filedocumented in this encounter Care Teams Roof Plumber Relationship Specialty Start Date End Date Sergio Nation MD [address] [place] [address] PCP - General Internal Medicine 09/21/22 Self-Referred, Patient 07/20/18 Silvio Currie MD [address] [place] [address] Referring Physician Urology 07/20/18 Samanta Webster MD, MPH [address] [place] [address] [email or web address] Medical Oncology 08/07/18 Syd Graves MD 20 [place] [address] [email or web address] Primary Oncologist Medical Oncology 09/17/24 documented as of this encounter Additional Source Comments The information contained in this document represents components of the legal health record. It is not the complete legal health record.[facility]
--- OUTSIDE RECORDS SUMMARY | 2025-04-29 18:57 | XMS_ITS | Encounter Summary ---
Author Organization [facility] Address [address] [facility] [address] [place] [address] Phone Care Team Providers Care Central Office Equipment Installer Name Role Phone Tapan Ortega MD Primary Care Provide r Self-Referred, Patient Unavailable Unavailab Silvio Lynn MD Unavailable [phone] Samanta Webster MD, MPH Unavailable [phone] Sergio Nation MD Primary Care Provider + Syd Graves MD Unavailable [phone] Encounter Details Date Type Department Care Team (Late st Contact Info) Description 03/13/2020 Procedure Pass , Radiology Department Social History Tobacco Use Types [...] st Contact Info) Description 09/18/2024 Procedure Pass , Radiology Department 03/07/2025 Procedure Pass [facility] CT Imaging, [address] [place] [address] 06/06/2025 2:00 PM EST Appointment [facility] CT Imaging, [place] [address] [place] [address] Clyde Ibarra MD [address] [address] [email or web address] 06/06/2025 2:30 PM EST Office Visit [facility] Department of Neurosurgery 60 [place] [address] Clyde Ibarra MD [address] [address] [email or web address] 09/16/2025 8:30 AM EDT Appointment , Radiology Department Syd Graves MD [address] [place] [phone] [email or web address] 09/16/2025 9:00 AM EDT Blood Draw DF/BWCC at , Phlebotomy Services [address] [place] [address] Syd Graves MD [address] [place] [phone] [email or web address] 09/19/2025 10:40 AM EDT Office Visit [facility] at [address] [address] Syd Graves MD [address] [place] [phone] [email or web address] documented as of this encounter Visit Diagnoses Not on filedocumented in this encounter Additional Health Concerns Infection Onset Date Last Indicated Resolved Time CoV-Risk 03/12/2021 03/12/2021 03/22/2021 1:22 AM EDT documented as of this encounter Care Teams Central Office Equipment Installer Relationship Specialty Start Date End Date Tapan Ortega MD [address] [place] [address] PCP - General Internal Medicine 03/24/18 09/20/22 Sergio Nation MD [address] [facility] [address] [address] [place] [address] PCP - General Internal Medicine 09/21/22 Self-Referred, Patient 07/20/18 Silvio Currie MD [address] [address] Referring Physician Urology 07/20/18 Samanta Webster MD, MPH [address] [place], [place] [address] [address] [place] [address] [email or web address] Medical Oncology 08/07/18 Syd Graves MD 20 [place] [address] [email or web address] Primary Oncologist Medical Oncology 09/17/24 documented as of this encounter Additional Source Comments The information contained in this document represents components of the legal health record. It is not the complete legal health record.[facility]
--- OUTSIDE RECORDS SUMMARY | 2025-04-29 18:57 | XMS_ITS | Encounter Summary ---
Author Organization [facility] Address [address] [facility] [address] [place] [address] Phone Care Team Providers Care Agricultural And Forestry Supervisor Name Role Phone Tapan Ortega MD Primary Care Provide r Self-Referred, Patient Unavailable Unavailab Silvio Lynn MD Unavailable [phone] Samanta Webster MD, MPH Unavailable [phone] Sergio Nation MD Primary Care Provider + Syd Graves MD Unavailable [phone] Reason for Referral * MRI/CAT Scan - Closed Specialty Diagnoses / Procedures Referred By Contac t Referred To Contact Procedures MRI Abdomen Outside (No Interpretation) Cyndee Espinosa MD Phone: tel: mailto:[email or web address] Referral ID Status Reason Start Date Expiration Date Visits Re quested Visits Authorized [id number] Closed 05/12/2018 05/12/2019 1 1 Encounter Details Date Type Department Care Team (Late st Contact Info) Description 05/12/2018 Transcribe Orders [facility] [address] [place] [address] Liborio Del Cid [address] [place] [address] [email or web address] Social History Tobacco Use Types Packs/Day Years [...] st Contact Info) Description 09/18/2024 Procedure Pass [facility], Radiology Department 03/07/2025 Procedure Pass [facility] CT Imaging, [place] 60 [place] [address] 06/06/2025 2:00 PM EST Appointment [facility] CT Imaging, [address] [address] Clyde Ibarra MD [address] [place] [address] [email or web address] 06/06/2025 2:30 PM EST Office Visit [facility] Department of Neurosurgery [address] [place] [address] Clyde Ibarra MD [address] [place] [address] [email or web address] 09/16/2025 8:30 AM EDT Appointment [facility], Radiology Department Syd Graves MD [address] [place] [phone] [email or web address] 09/16/2025 9:00 AM EDT Blood Draw DF/BWCC at [facility], Phlebotomy Services [address] [place] [address] Syd Graves MD 20 [place] [address] [email or web address] 09/19/2025 10:40 AM EDT Office Visit [facility] at [facility] [address] [facility] 2nd [place] [address] Syd Graves MD 20 [place] [phone] [email or web address] documented as of this encounter Results * MRI Abdomen Outside (No Interpretation) (05/12/2018 8:21 AM EST) Narrative MICHAEL - 05/12/2018 8:21 AM EST This study is for PACS storage only and not for interpretation. us Cyndee Espinosa MD IMG OUTSIDE IMAGING W/OU T INTERPRETATION Final Result [facility] documented in this encounter Visit Diagnoses Not on filedocumented in this encounter Additional Health Concerns Infection Onset Date Last Indicated Resolved Time CoV-Risk 03/12/2021 03/12/2021 03/22/2021 1:22 AM EDT documented as of this encounter Care Teams Agricultural And Forestry Supervisor Relationship Specialty Start Date End Date Tapan Ortega MD [address] [place] [address] [address] [place] [address] PCP - General Internal Medicine 03/24/18 09/20/22 Sergio Nation MD [address] [place] [address] [address] [place] [address] PCP - General Internal Medicine 09/21/22 Self-Referred, Patient 07/20/18 Silvio Currie MD [address] [place] [address] 120 [place] [address] Referring Physician Urology 07/20/18 Samanta Webster MD, MPH [address] [place] [facility] [address] [place] [address] [email or web address] Medical Oncology 08/07/18 Syd Graves MD 20 [place] [address] [email or web address] Primary Oncologist Medical Oncology 09/17/24 documented as of this encounter Additional Source Comments The information contained in this document represents components of the legal health record. It is not the complete legal health record.[facility]
--- OUTSIDE RECORDS SUMMARY | 2025-04-29 18:57 | XMS_ITS ---
Author Organization [facility] Address [address] [place] [address] Phone Care Team Providers Care Fire Extinguisher Installer Name Role Phone Self-Referred, Patient Unavailable Unavailab Silvio Lynn MD Unavailable [phone] Samanta Webster MD, MPH Unavailable [phone] Sergio Nation MD Primary Care Provider + Syd Graves MD Unavailable [phone] Active Problems Problem Noted Date Diagnosed Date [...] of the neck - s/p cervical fusion Current Treatment and Therapy Plans No current plan information found. Past Treatment and Therapy Plans Oncology Therapy Plan Plan Name Start Date Discontinue Date Treatment Medications Discontinue Reason Plan Provider OCTREOTIDE (SANDOSTATIN LAR ) 04/12/2019 03/27/2020 No medications scheduled. a. Therapy Complete Kellie Perez PA-C OCTREOTIDE (SANDOSTATIN LAR ) 10/19/2018 04/12/2019 No medications scheduled. a. Therapy Complete Syd Graves MD
--- OUTSIDE RECORDS SUMMARY | 2025-04-29 18:57 | XMS_ITS | Encounter Summary ---
Author Organization [facility] Address [address] [place] [address] Phone Care Team Providers Care Curing Room Worker Name Role Phone Self-Referred, Patient Unavailable Unavailab Silvio Lynn MD Unavailable [phone] Samanta Webster MD, MPH Unavailable [phone] Sergio Nation MD Primary Care Provider + Syd Graves MD Unavailable [phone] Encounter Details Date Type Department Care Team (Late st Contact Info) Description 03/01/2025 Procedure Pass [facility] Neuro Interventional Radiology [address] [place] [id number] Social History Tobacco Use Types Packs/Day Years [...] st Contact Info) Description 09/18/2024 Procedure Pass [facility], Radiology Department 03/07/2025 Procedure Pass [facility] CT Imaging, [place] [address] [place] [address] 06/06/2025 2:00 PM EST Appointment [facility] CT Imaging, [place] [address] [place] [address] Clyde Ibarra MD [address] [address] [email or web address] 06/06/2025 2:30 PM EST Office Visit [facility] Department of Neurosurgery [address] [place] [address] Clyde Ibarra MD [address] [address] [email or web address] 09/16/2025 8:30 AM EDT Appointment [facility], Radiology Department Syd Graves MD [address] [place] [phone] [email or web address] 09/16/2025 9:00 AM EDT Blood Draw DF/BWCC at [facility], Phlebotomy Services [address] [place] [address] Syd Graves MD [address] [place] [phone] [email or web address] 09/19/2025 10:40 AM EDT Office Visit [facility] at [address] [address] Syd Graves MD [address] [place] [phone] [email or web address] documented as of this encounter Visit Diagnoses Not on filedocumented in this encounter Care Teams Curing Room Worker Relationship Specialty Start Date End Date Sergio Nation MD [address] [place] [address] PCP - General Internal Medicine 09/21/22 Self-Referred, Patient 07/20/18 Silvio Currie MD [address] [place] [address] Referring Physician Urology 07/20/18 Samanta Webster MD, MPH [address] [place] [address] [email or web address] Medical Oncology 08/07/18 Syd Graves MD 20 [place] [phone] [email or web address] Primary Oncologist Medical Oncology 09/17/24 documented as of this encounter Additional Source Comments The information contained in this document represents components of the legal health record. It is not the complete legal health record.[facility]
--- OUTSIDE RECORDS SUMMARY | 2025-04-29 18:57 | XMS_ITS | Encounter Summary ---
Author Organization [facility] Address [address] [place] [address] Phone Care Team Providers Care Gelatin Plant Supervisor Name Role Phone Self-Referred, Patient Unavailable Unavailab Silvio Lynn MD Unavailable [phone] Samanta Webster MD, MPH Unavailable [phone] Sergio Nation MD Primary Care Provider + Syd Graves MD Unavailable [phone] Encounter Details Date Type Department Care Team (Late st Contact Info) Description 03/02/2025 Procedure Pass [facility]'s Radiology [address] [place] [address] Social History Tobacco Use Types Packs/Day Years [...] st Contact Info) Description 09/18/2024 Procedure Pass [facility], Radiology Department 03/07/2025 Procedure Pass [facility] CT Imaging, [place] [address] [place] [address] 06/06/2025 2:00 PM EST Appointment [facility] CT Imaging, [place] [address] [place] [address] Clyde Ibarra MD [address] [address] [email or web address] 06/06/2025 2:30 PM EST Office Visit [facility] Department of Neurosurgery 60 [place] [address] Clyde Ibarra MD [address] [address] [email or web address] 09/16/2025 8:30 AM EDT Appointment [facility], Radiology Department Syd Graves MD [address] [place] [phone] [email or web address] 09/16/2025 9:00 AM EDT Blood Draw DF/BWCC at [facility], Phlebotomy Services [address] [place] [address] Syd Graves MD [address] [place] [phone] [email or web address] 09/19/2025 10:40 AM EDT Office Visit [facility] at [address] [address] Syd Graves MD [address] [place] [phone] [email or web address] documented as of this encounter Visit Diagnoses Not on filedocumented in this encounter Care Teams Gelatin Plant Supervisor Relationship Specialty Start Date End Date Sergio Nation MD [address] [place] [address] PCP - General Internal Medicine 09/21/22 Self-Referred, Patient 07/20/18 Silvio Currie MD [address] [place] [address] Referring Physician Urology 07/20/18 Samanta Webster MD, MPH [address] [place] [address] [email or web address] Medical Oncology 08/07/18 Syd Graves MD 20 [place] [phone] [email or web address] Primary Oncologist Medical Oncology 09/17/24 documented as of this encounter Additional Source Comments The information contained in this document represents components of the legal health record. It is not the complete legal health record.[facility]
--- OUTSIDE RECORDS SUMMARY | 2025-04-29 18:57 | XMS_ITS | Encounter Summary ---
Author Organization [facility] Address [address] [place] [address] Phone Care Team Providers Care Flotation Operator Name Role Phone Self-Referred, Patient Unavailable Unavailab Silvio Lynn MD Unavailable [phone] Samanta Webster MD, MPH Unavailable [phone] Sergio Nation MD Primary Care Provider + Syd Graves MD Unavailable [phone] Encounter Details Date Type Department Care Team (Late st Contact Info) Description 04/29/2025 Ancillary Orders [facility] [address] [place] [address] Clyde Ibarra MD 60 [facility] 1st [facility] [place] [address] @[email or web address] Social History Tobacco Use Types Packs/Day Years [...] Upcoming Encounters Date Type Department Care Team (Juan Diego queen Contact Info) Description 09/18/2024 Procedure Pass [facility], Radiology Department 03/07/2025 Procedure Pass [facility] CT Imaging, [place] [address] [place] [address] 06/06/2025 2:00 PM EST Appointment [facility] CT Imaging, [place] [address] [place] [address] Clyde Ibarra MD [address] [address] [email or web address] 06/06/2025 2:30 PM EST Office Visit [facility] Department of Neurosurgery 60 [place] [address] Clyde Ibarra MD [address] [address] [email or web address] 09/16/2025 8:30 AM EDT Appointment [facility], Radiology Department Syd Graves MD [address] [place] [phone] [email or web address] 09/16/2025 9:00 AM EDT Blood Draw DF/BWCC at [facility], Phlebotomy Services [address] [place] [address] Syd Graves MD [address] [place] [phone] [email or web address] 09/19/2025 10:40 AM EDT Office Visit [facility] at [address] [address] Syd Graves MD [address] [place] [phone] [email or web address] documented as of this encounter Results * CT Head Outside (No Interpretation) (04/29/2025 6:12 PM EST) Narrative MICHAEL - 04/29/2025 6:12 PM EST This study is for PACS storage only and not for interpretation. us Cldye Ibarra MD IMG OUTSIDE IMAGING W/OUT INTER PRETATION Final Result MICHAEL documented in this encounter Visit Diagnoses Not on filedocumented in this encounter Care Teams Flotation Operator Relationship Specialty Start Date End Date Sergio Nation MD [address] [place] [address] PCP - General Internal Medicine 09/21/22 Self-Referred, Patient 07/20/18 Silvio Currie MD [address] [place] [address] Referring Physician Urology 07/20/18 Samanta Webster MD, MPH [address] [place] [address] [email or web address] Medical Oncology 08/07/18 Syd Graves MD 20 [place] [phone] [email or web address] Primary Oncologist Medical Oncology 09/17/24 documented as of this encounter Additional Source Comments The information contained in this document represents components of the legal health record. It is not the complete legal health record.[facility]
--- OUTSIDE RECORDS SUMMARY | 2025-04-29 18:57 | XMS_ITS | Encounter Summary ---
Author Organization [facility] Address [address] [facility] [address] [place] [address] Phone Care Team Providers Care Pai Gow Manager Name Role Phone Tapan Ortega MD Primary Care Provide r Self-Referred, Patient Unavailable Unavailab Silvio Lynn MD Unavailable [phone] Samanta Webster MD, MPH Unavailable [phone] Sergio Nation MD Primary Care Provider + Syd Graves MD Unavailable [phone] Encounter Details Date Type Department Care Team (Late st Contact Info) Description 09/07/2018 Procedure Pass [facility] Periop 1st floor [address] [place] [address] Social History Tobacco Use Types Packs/Day Years [...] st Contact Info) Description 09/18/2024 Procedure Pass [facility], Radiology Department 03/07/2025 Procedure Pass [facility] CT Imaging, [place] 60 [place] [address] 06/06/2025 2:00 PM EST Appointment [facility] CT Imaging, [place] [address] [place] [address] Cylde Ibarra MD [address] [address] [email or web address] 06/06/2025 2:30 PM EST Office Visit [facility] Department of Neurosurgery 60 [place] [address] Clyde Ibarra MD [address] [address] [email or web address] 09/16/2025 8:30 AM EDT Appointment [facility], Radiology Department Syd Graves MD [address] [place] [phone] [email or web address] 09/16/2025 9:00 AM EDT Blood Draw DF/BWCC at [facility], Phlebotomy Services [address] [place] [address] Syd Graves MD [address] [place] [phone] [email or web address] 09/19/2025 10:40 AM EDT Office Visit [facility] at [address] [address] Syd Graves MD 20 [place] [phone] [email or web address] documented as of this encounter Visit Diagnoses Not on filedocumented in this encounter Additional Health Concerns Infection Onset Date Last Indicated Resolved Time CoV-Risk 03/12/2021 03/12/2021 03/22/2021 1:22 AM EDT documented as of this encounter Care Teams Pai Gow Manager Relationship Specialty Start Date End Date Tapan Ortega MD [address] [place] [address] [place] [address] PCP - General Internal Medicine 03/24/18 09/20/22 Sergio Nation MD [address] [facility] [address] [place] [address] PCP - General Internal Medicine 09/21/22 Self-Referred, Patient 07/20/18 Silvio Currie MD 100 [facility] [address] [place] [address] Referring Physician Urology 07/20/18 Samanta Webster MD, MPH [address] [facility] [address] [place] [address] [email or web address] Medical Oncology 08/07/18 Syd Graves MD 20 [place] [phone] [email or web address] Primary Oncologist Medical Oncology 09/17/24 documented as of this encounter Additional Source Comments The information contained in this document represents components of the legal health record. It is not the complete legal health record.[facility]
--- OUTSIDE RECORDS SUMMARY | 2025-04-29 18:57 | XMS_ITS | Encounter Summary ---
Author Organization [facility] Address [address] [place] [address] Phone Care Team Providers Care Conventional Mortgage Underwriter Name Role Phone Self-Referred, Patient Unavailable Unavailab Silvio Lynn MD Unavailable [phone] Samanta Webster MD, MPH Unavailable [phone] Sergio Nation MD Primary Care Provider + Syd Graves MD Unavailable [phone] Encounter Details Date Type Department Care Team (Late st Contact Info) Description 02/28/2025 Procedure Pass [facility] Radiology [address] [place] [address] Social History Tobacco Use Types Packs/Day Years [...] on file documented as of this encounter Functional Status * Calculated C-SSRS Risk Score (Lifetime/Recent) Answer Date of Assessment Author No Risk Indicated 02/28/2025 6:23 PM EDT Nimesh Harepr RN * Carbon Suicide Severity Rating Scale (Screener/Recent Self-Report) Question Answer Date of Assessment Author 1. Wish to be (Past 1 Month) No 6:23 PM EDT Call, Joyce Soto RN 2. Non-Specific Active Suici karan Thoughts (Past 1 Month) No 02/28/2025 6:23 PM EDT Call, Joyce Soto RN 6. Suicidal Behavior (Lifetime) No 6:23 PM EDT Call, Joyce Soto RN documented as of this encounter Plan of Treatment Upcoming Encounters Date Type Department Care Team (Late st Contact Info) Description 09/18/2024 Procedure Pass [facility], Radiology Department 03/07/2025 Procedure Pass [facility] CT Imaging, [place] 60 [place] [address] 06/06/2025 2:00 PM EST Appointment [facility] CT Imaging, [place] [address] [place] [address] Clyde Ibarra MD [address] [address] [email or web address] 06/06/2025 2:30 PM EST Office Visit [facility] Department of Neurosurgery [address] [place] [address] Clyde Ibarra MD [address] [place] [address] [email or web address] 09/16/2025 8:30 AM EDT Appointment [facility], Radiology Department Syd Graves MD [address] [place] [phone] [email or web address] 09/16/2025 9:00 AM EDT Blood Draw DF/[facility] at [facility], Phlebotomy Services [address] [place] [address] Syd Graves MD 20 [place] [phone] [email or web address] 09/19/2025 10:40 AM EDT [facility] [address] [address] Syd Graves MD 20 [place] [phone] [email or web address] documented as of this encounter Visit Diagnoses Not on filedocumented in this encounter Care Teams Conventional Mortgage Underwriter Relationship Specialty Start Date End Date Sergio Nation MD [address] [place] [address] PCP - General Internal Medicine 09/21/22 Self-Referred, Patient 07/20/18 Silvio Currie MD [address] [place] [address] Referring Physician Urology 07/20/18 Samanta Webster MD, MPH [address] [place] [address] [email or web address] Medical Oncology 08/07/18 Syd Graves MD 20 [place] [phone] [email or web address] Primary Oncologist Medical Oncology 09/17/24 documented as of this encounter Additional Source Comments The information contained in this document represents components of the legal health record. It is not the complete legal health record.[facility]
[2025-04-29 19:19] LABS: Platelet Count 133 X10*3/uL (160-400)
[2025-04-29 21:06] VITALS: BP 149/74; PULSE 71; RESP 14; O2SAT 99
--- NOTE | 2025-04-29 21:13 | PC.NURSE ---
Pt a&ox3, resting comfortably in stretcher. Pt denies pain, dizziness, blurred vision or weakness. Breathing unlabored. Skin pwd. VSS. Patient ambulated to restroom with PCT. Call petersen within reach.
--- NOTE | 2025-04-29 21:14 | PM.IMHP ---
History of Present Illness Date of Service: 04/29/25 Attending physician on admission: Francisco Hagen Chief Complaint: blurry vision Patient is an 79-year-old male with a past medical history significant for history of TIAs, hypertension, recent subdural hematoma secondary to traumatic fall, s/p to recent brain surgeries including coils placed, now on Keppra for seizure prophylaxis, who presented to the ED due to dizziness and blurry vision lasting a few minutes. The patient reports that this happened to him about 5 years ago and he was diagnosed with TIAs. He was previously on aspirin however was told to hold this due to his recent brain bleed and does not take any anticoagulants. The patient reports that his blurry vision has resolved. He describes it more like contorted vision which lasted about 5 minutes. He denies any headache, weakness, dizziness, nausea, vomiting, chest pain, shortness of breath or gait instabilities. Review of Systems Constitutional: Constitutional: Denies body ache(s), Denies chills, Denies fatigue, Denies fever(s) and Denies headache(s) Eyes: Eyes: Reports change in vision ENT: Denies headache(s), Denies nasal congestion, Denies nasal discharge and Denies sore throat Cardiovascular: Cardiovascular: Denies chest pain, Denies syncope, Denies rapid heart rate, Denies leg edema, Denies lightheadedness and Denies dyspnea Respiratory: Respiratory: Denies chest congestion, Denies cough, Denies dyspnea and Denies wheezing Gastrointestinal: Gastrointestinal: Denies abdominal pain, Denies diarrhea, Denies nausea and Denies vomiting Genitourinary: Genitourinary: Denies dysuria and Denies urinary urgency Musculoskeletal: Musculoskeletal: Denies back pain Integumentary/Breasts: Skin/Breast: Denies rash Neurologic: Reports as per HPI, Denies confusion, Denies syncope and Denies headache(s) Psychiatric: Psychiatric: Denies confusion Endocrine: Endocrine: Denies fatigue Hematologic/Lymphatic: Hematologic/Lymphatic: Denies easy bleeding Allergic/Immunologic: Allergic/Immunologic: Denies wheezing [facility] Medical History (Updated 04/29/25 @ 22:38 by Janet Herrmann PA-C) Subdural hematoma, chronic HLD (hyperlipidemia) HTN (hypertension) Brain TIA Functional capacity: independent ambulation Social History Patient Tobacco Use Status: Never used Tobacco Smoked in Last 30 Days: No Use of substances other than those prescribed or required for medical reasons: No Advance Directives: No Advance Directives Information Provided: Yes Do you have a plan to hurt others: No Plan Nutrition Risks: No Nutritional Risk Narrative: No smoking, alcohol or drug use Meds Allergies Allergy/AdvReac Type Severity Reaction Status Date / Time No Known Allergies Allergy Verified 04/29/25 16:43 Active Medications: Current Medications Acetaminophen (Acetaminophen 325 Mg Tablet) 975 mg PO Q6H PRN PRN Reason: Pain, Mild 1-3,fever,headache Calcium Carbonate (Calcium Carbonate 750 Mg Tab.Chew) 750 mg PO Q4H PRN PRN Reason: Heartburn Magnesium Hydroxide (Milk Of Magnesia 30 Ml Oral.Susp) 30 ml PO DAILY PRN PRN Reason: Constipation Melatonin (Melatonin 3 Mg Tablet) 6 mg PO BEDTIME PRN PRN Reason: Insomnia Ondansetron HCl (Ondansetron Hcl 4 Mg/2 Ml Vial) 4 mg IVPUSH Q8H PRN PRN Reason: Nausea and Vomiting Oxycodone HCl (Oxycodone Hcl Immed Release 5 Mg Tablet) 5 mg PO Q6H PRN PRN Reason: Pain, Severe (Pain Scale 7-10) Sodium Chloride (0.9 % Sodium Chloride Flush 3 Ml Syringe) 3 ml IVFLUSH QSHIFT MALINA Physical Exam Vital Signs and Narrative: Vital Signs: Last Vital Signs Temp 98.1 F 04/29/25 18:07 Pulse 71 04/29/25 21:06 Resp 14 04/29/25 21:06 BP 149/74 H 04/29/25 21:06 Pulse Ox 99 04/29/25 21:06 O2 Del Method Room Air 04/29/25 21:06 BMI result Body Mass Index 23.6 General: AOx3, no acute distress Resp: CTA bilaterally CVS: S1, S2, RRR GI: +BS, NT, no distention Skin: Warm, dry Neuro: Cranial nerves II-XII grossly intact bilaterally. Motor grossly intact bilaterally. strength 5/5 bilateral upper and lower extremities. Extremities: No pitting edema Psych: Appropriate affect Const: General: No confusion Orientation/consciousness: No confusion Neuro: General: No confusion Results Labs 04/29/25 17:13 04/29/25 17:13 Labs: Laboratory Results - last 24 hr 04/29/25 17:13 MCV 91.7 MCH 29.5 MCHC 32.1 RDW 15.4 Plt Count 133 L MPV 11.4 Immature Gran % (Auto) 0.3 Neut % (Auto) 54.8 Lymph % (Auto) 28.1 [place] % (Auto) 12.0 H Eos % (Auto) 3.5 Baso % (Auto) 1.3 Lymph # (Auto) 1.1 L [place] # (Auto) 0.5 Eos # (Auto) 0.1 Baso # (Auto) 0.1 Abs Immat Gran (auto) 0.01 Absolute Neuts (auto) 2.2 Absolute Nucleated RBC 0.000 Nucleated RBC % (auto) 0.0 Smear Tech's Comments VERIFIED PT 13.6 H INR 1.1 Anion Gap 13 Estim Creat Clear Calc 72.5 Estimated GFR > 60 Random Glucose 76 Calcium 9.4 Magnesium 2.2 Total Bilirubin 0.9 AST 32 ALT 35 Alkaline Phosphatase 119 H Total Protein 7.2 Albumin 4.4 Influenza Type A (PCR) NEGATIVE Influenza Type B (PCR) NEGATIVE RSV RNA Qual (PCR) NEGATIVE SARS-CoV-2 RNA (RT-PCR) NEGATIVE Assessment and Plan (1) Brain TIA: Status: Acute Plan Patient is an 79-year-old male with a past medical history significant for history of TIAs, hypertension, recent subdural hematoma secondary to traumatic fall, s/p to recent brain surgeries including coils placed, now on Keppra for seizure prophylaxis, who presented to the ED due to dizziness and blurry vision lasting a few minutes. TIA -- transient blurry vision - CT reviewed by [facility] at [facility] who report improvement of subdural hematoma on imaging and possible TIA - aspirin contraindicated due to subdural hematoma - continue statin - MRI - will need to find out if coils compatible - echo - lipid panel - monitor on tele - PT/OT eval Hypertension - BP normal, resume home meds in a.m. S/p subdural hematoma -- recent brain surgery x2 on 02/27 (skylar hole drainage) and 03/01 (coil embolization) - continue Keppra for seizure prophylaxis Thrombocytopenia - monitor platelets, avoid anticoagulants and antiplatelets Med rec pending Full code VTE prophylaxis: Pneumoboots Patient with likely TIA, requiring admission for observation for further evaluation and neurology consultation. Quality Stroke Does the patient have a stroke diagnosis?: No VTE Prior VTE?: No VTE Risk Level:: Medical - moderate - high VTE Device Contraindication: N/A - Device Ordered VTE Drug Contraindication: Treatment Not Indicated
[2025-04-30 00:27] VITALS: BP 169/82; PULSE 76; RESP 16; TEMP 36.7; O2SAT 98
[2025-04-30 01:13] LABS: Appearance Urine Clear; Glucose Urine UA Negative (Negative); PH 6.5 (5.0-9.0); Specific Gravity - Urine 1.015 (1.005-1.025)
[2025-04-30 03:29] VITALS: BP 152/76; PULSE 68; RESP 14; O2SAT 97
[2025-04-30 04:11] LABS: Hematocrit 35.2 % (42.0-52.0); Hemoglobin 11.5 g/dl (14.0-18.0); Mean Corpuscular HGB Conc 32.7 g/dl (31.0-36.0); Mean Corpuscular Hemoglobin 29.6 pg (27.0-33.0); Mean Corpuscular Volume 90.5 fL (80.0-98.0); NRBC Abs Auto 0.000 X10*3/uL (0.0-0.012); NRBC Pct Auto 0.0 /100WBC (0.0-0.2); Platelet Count 131 X10*3/uL (160-400); Red Blood Count 3.89 X10*6/uL (4.60-5.80); White Blood Count 3.7 X10*3/uL (4.8-10.8)
[2025-04-30 04:25] LABS: Anion Gap 12 (12-20); Blood Urea Nitrogen 14 mg/dL (9-16); Calcium 8.8 mg/dL (8.4-10.2); Carbon Dioxide 23 mmol/L (22-29); Chloride 112 mmol/L (96-108); Creatinine Clr Calc Pharmacy 76.1; Estimated Glomerular Filt Rate > 60; Potassium 3.3 mmol/L (3.3-5.1); Sodium 144 mmol/L (135-145)
[2025-04-30 04:31] LABS: Cholesterol 104 mg/dL (<200); HDL Cholesterol 46 mg/dL (>40); Triglycerides 41 mg/dL (<150)
--- NOTE | 2025-04-30 07:00 | CA_ITS ---
Transthoracic Echocardiogram Patient (Last, First, Middle): Kwabena Hernandez, Gender: M Date of : 1945 Age: 79 Procedure Date: 04/30/2025 Procedure Type: Transthoracic Echocardiogram Location: ER Height: 180.34 cm Weight: 76.2 kg BSA: 1.96 m2 Heart Rate: 73 bpm BP: 153 / 77 mmHg Yolk Spray Drier: ANA CRISTINA Referring MD: Janet Herrmann PA-C Symptoms: ?TIA Study Quality: Adequate ECG Rhythm: Sinus Conclusions: - The left ventricular systolic function is mildly decreased. The calculated ejection fraction is 50% by biplane method. There is mild global hypokinesis. - Evidence suggests grade II (moderate) diastolic dysfunction. - There is severe tricuspid valve regurgitation. - Small to moderate circumferential pericardial effusion noted. Findings Left Ventricle Normal left ventricular cavity size. The left ventricular systolic function is mildly decreased. The calculated ejection fraction is 50% by biplane method. There is mild global hypokinesis. Evidence suggests grade II (moderate) diastolic dysfunction. There is mild septal asymmetric hypertrophy. Right Ventricle Mildly increased right ventricular cavity size. There is normal right ventricular systolic function. Atria The left atrium is normal in size. The right atrium is moderately dilated. There is a prominent Chiari network. Aortic Valve There is a normal trileaflet aortic valve. There is no aortic valve stenosis. There is mild aortic valve regurgitation. Mitral Valve The mitral valve appears normal. There is trace mitral valve regurgitation. There is no mitral valve stenosis. Pulmonic Valve The pulmonic valve is likely normal. Tricuspid Valve There is severe tricuspid valve regurgitation. The right ventricular systolic pressure is not calculated. Non-coaptation of tricuspid leaflets. Great Vessels The asc aorta and aortic arch are normal in size. Venous The inferior vena cava is mildly dilated and collapses less than 50% with inspiration. Pericardium/Pleural There are no definitive echocardiographic findings of tamponade physiology. Small to moderate circumferential pericardial effusion noted. Prior Study Comparison No prior study available for comparison. Measurements 2D Linear Measurements IVSd: 1.03 0.6-0.9/0.6-1.0 cm LVIDd: 5.07 3.9-5.3/4.2-5.9 cm LVIDd Index: 2.59 2.4-3.2/2.2-3.1 cm/m2 LVIDs: 3.73 2.0-3.6 cm LVPWd: 0.90 0.7-1.1 cm LA Diam: 3.50 2.7-3.8/3.0-4.0 cm LAIDs Index: 1.79 1.5-2.3 cm/m2 LV Mass: 221.18 67-162/88-224 g LV Mass Index: 112.85 43-95/49-115 g/m2 LVOT Diam: 2.00 3.0+(-)1.3 cm 2D Systolic Function EF 4C: 48.20 >55% EF 2C: 53.10 >55% EF BiP: 49.70 >55% Mitral Valve MV Pk E: 1.56 MV PK A: 1.17 MV Decel Time: 286.00 E/A: 1.30 E'Lateral: 8.81 E'Medial: 4.46 E/E' Med: 35.00 E/E' Lat: 17.70 PHT: 84.00 MVA PHT: 2.62 Decel Colbert: 5.46 Aortic Valve AoV Pk Bartolo: 1.59 AoV Mn Bartolo: 1.04 AoV VTI: 0.28 AoV Pk Grad: 10.00 Aov Mn Grad: 5.00 TEDDY Cont.VTI: 2.14 AI Pk Bartolo: 4.13 AI Colbert: 2.34 LVOT LVOT Pk Bartolo: 1.03 LVOT Mn Bartolo: 0.66 LVOT VTI: 0.19 LVOT Pk Grad: 4.00 LVOT Mn Grad: 2.00 LVOT Diam: 2.00 LVOT Area: 3.14 Diastolic Function MV Pk E: 1.56 MV Pk A: 1.17 E/A: 1.30 E'Medial: 4.46 E/E' Med: 35.00 E' Laterial: 8.81 E/E' Lat: 17.70 Right Ventricle TAPSE (mm): 22.30 TVS' Bartolo: 14.70 Tricuspid Valve TR Pk Bartolo: 2.70 TR Pk Grad: 29.00 Great Vessels Aorta Sinus of Valsalva: 3.80 2.0-3.5 cm Ao Asc: 3.40 2.1-3.4 cm Ao Arch: 3.20 Pulmonary Valve PV Pk Bartolo: 1.45 Peak PV Grad: 8.00 Updated in Other Vendor System with Status of Final Wong Mak MD electronically signed on 04/30/2025 2:57:35 PM with status of Final
--- NOTE | 2025-04-30 07:37 | PC.NURSE ---
assumed care of patient at 0715. report received from Esther MOSLEY.
[2025-04-30 07:52] VITALS: BP 158/75; PULSE 81; RESP 18; O2SAT 97
--- NOTE | 2025-04-30 07:59 | PC.NURSE ---
pt ate breakfast. resting comfortably in stretcher watching tv, all needs met, denies any current complaints. call petersen within reach., plan of care ongoing.
--- NOTE | 2025-04-30 09:00 | PHA.MEDREC ---
Pharmacy Consult ? Medication Reconciliation Pharmacy has completed the medication reconciliation. Spoke with pt to confirm medications.
--- NOTE | 2025-04-30 09:57 | PM.NEUROCN ---
History of Present Illness Data of Consult Service Date: 04/30/25 Primary Care Provider: Michael Mcconnell MD [facility] Reason for consult: Transient vertigo and jumbled vision for 2 minutes This is an 79-year-old male with a past medical history of 2 TIAs about 4 years ago during COVID with a visual disturbance and vertigo. He was worked up by a neurologist at [facility] and put on aspirin. He had no recurrence of that symptom till the day he presented to [facility] emergency room with recurrence of a similar episode lasting 2-3 minutes which then resolved. There was no associated loss of consciousness lateralized weakness numbness tingling or slurred speech. He feels back to his baseline. He also has a history of hypertension, a recent subdural hematoma apparently secondary to trauma from hitting his head on a tree branch while riding a lawnmower in December. In January while on a cruise to [place] in [place] he started to develop left-sided weakness and curling up of the left hand and was taken to the emergency room where he was found to have a subdural hematoma. He was subsequently transported to [facility] in [place] and had evacuation of the subdural on 02/28/2025 along with some blowing and coiling of some abnormal blood vessels. It is not clear whether there was an associated surface AVM with bleeders as well. He has recovered well from his left hemiparesis. He is now on Keppra for seizure prophylaxis, but has not had any seizures. He presented to the ED due to dizziness and blurry vision lasting a few minutes. The patient reports that this happened to him about 5 years ago and he was diagnosed with TIAs. He was previously on aspirin however was told to stop it a few months ago. He does not take any anticoagulants. The patient reports that his vision disturbance has resolved. He denies any headache, weakness, dizziness, nausea, vomiting, chest pain, shortness of breath or gait instabilities. [facility] Past Medical History Medical History Subdural hematoma, chronic HLD (hyperlipidemia) HTN (hypertension) Brain TIA Social History Social History Patient Tobacco Use Status: Never used Tobacco Smoked in Last 30 Days: No Use of substances other than those prescribed or required for medical reasons: No Advance Directives: No Advance Directives Information Provided: Yes Do you have a plan to hurt others: No Plan Nutrition Risks: No Nutritional Risk Meds Allergies Allergy/AdvReac Type Severity Reaction Status Date / Time No Known Allergies Allergy Verified 04/29/25 16:43 Active Medications: Current Medications Acetaminophen (Acetaminophen 325 Mg Tablet) 975 mg PO Q6H PRN PRN Reason: Pain, Mild 1-3,fever,headache Calcium Carbonate (Calcium Carbonate 750 Mg Tab.Chew) 750 mg PO Q4H PRN PRN Reason: Heartburn Levetiracetam (Levetiracetam 250 Mg Tablet) 750 mg PO BEDTIME [facility] Last Admin: 04/29/25 22:38 Dose: 750 mg Magnesium Hydroxide (Milk Of Magnesia 30 Ml Oral.Susp) 30 ml PO DAILY PRN PRN Reason: Constipation Melatonin (Melatonin 3 Mg Tablet) 6 mg PO BEDTIME PRN PRN Reason: Insomnia Ondansetron HCl (Ondansetron Hcl 4 Mg/2 Ml Vial) 4 mg IVPUSH Q8H PRN PRN Reason: Nausea and Vomiting Oxycodone HCl (Oxycodone Hcl Immed Release 5 Mg Tablet) 5 mg PO Q6H PRN PRN Reason: Pain, Severe (Pain Scale 7-10) Sodium Chloride (0.9 % Sodium Chloride Flush 3 Ml Syringe) [facility] Last Admin: 04/30/25 08:51 Dose: Not Given Home Medications ?Medication ?Instructions ?Recorded ?Confirmed ?Last Taken ?Type acetaminophen 500 mg tablet 500 mg PO BEDTIME 04/30/25 04/30/25 04/28/25 History amlodipine 5 mg tablet 5 mg PO DAILY 04/30/25 04/30/25 04/29/25 History atorvastatin 40 mg tablet 40 mg PO DAILY 04/30/25 04/30/25 04/29/25 History levetiracetam 750 mg 1,500 mg PO BEDTIME 04/30/25 04/30/25 04/29/25 History tablet,extended release 24 hr losartan 100 mg tablet 100 mg PO DAILY 04/30/25 04/30/25 04/29/25 History multivitamin with minerals-folic 2 tab PO DAILY 04/30/25 04/30/25 04/29/25 History acid 200 mcg chewable tablet (Multivitamin Gummies) Physical Exam Vital Signs: Vital Signs: Last Vital Signs Temp 98.0 F 04/30/25 00:27 Pulse 81 04/30/25 07:52 Resp 18 04/30/25 07:52 BP 158/75 H 04/30/25 07:52 Pulse Ox 97 04/30/25 07:52 O2 Del Method Room Air 04/30/25 07:52 BMI result Body Mass Index 23.6 Neuro: Other: He is alert and oriented with normal intellectual functions. His speech and language functions are normal. He has no visual field deficit. There is no drift of the upper extremities. He has some residual left arm weakness particularly in the left triceps which is 4/5 left deltoid 5-/5 left registered nurse behavioral health 5- 5 with normal strength in the lower extremities. Plantar responses are flexor. Sensory exam is normal. Results Labs 04/30/25 03:59 04/30/25 03:59 Labs: Short CBC 04/29/25 04/30/25 Range/Units 17:13 03:59 WBC 4.0 L 3.7 L (4.8-10.8) X10*3/uL Hgb 12.5 L 11.5 L (14.0-18.0) g/dl Hct 38.9 L 35.2 L (42.0-52.0) % Plt Count 133 L 131 L (160-400) X10*3/uL BMP 04/29/25 04/30/25 17:13 03:59 Sodium 146 H 144 Potassium 3.8 3.3 Chloride 111 H 112 H Carbon Dioxide 26 23 BUN 16 14 Creatinine 0.85 0.81 Calcium 9.4 8.8 D Liver Function 04/29/25 Range/Units 17:13 Total Bilirubin 0.9 (0.0-1.0) mg/dL AST 32 (5-37) U/L ALT 35 (0-40) U/L Alkaline Phosphatase 119 H (39-117) U/L Albumin 4.4 (3.5-5.0) g/dL Urine 04/30/25 Range/Units 00:43 Urine Color Yellow Urine Appearance Clear Urine pH 6.5 (5.0-9.0) Ur Specific [place] 1.015 (1.005-1.025) Urine Protein Trace (Neg-Trace) mg/dL Urine Glucose (UA) Negative (Negative) mg/dL Assessment and Plan (1) Brain TIA: Status: Acute This episode is similar to previous episodes that occurred 4-5 years ago somewhat suggestive of a vertebrobasilar TIA. The other possibility is a transient vestibular/labyrinthine dysfunction There is no evidence of an acute stroke on his MRI. HEENT view of his acute to subacute subdural hematomas over the right frontoparietal area I would hold antiplatelet therapy or use of any anticoagulants. I have personally reviewed his CT scan and MRI images. (2) Subdural hematoma, chronic: Status: Acute Acute on subacute subdural hematoma right frontoparietal with the 11-12 mm thickness. It is unclear if there were some underlying abnormal blood vessels as well because according to the patient some glue and coils were also used it is part of the procedure. It appears to be stable and the patient is relatively asymptomatic from it. He has a follow-up visit in early May with his neurologist at [facility]. Procedures Date of Service Date of Service: 04/30/25
--- NOTE | 2025-04-30 11:18 | PC.NURSE ---
Away for MRI at this time.
--- NOTE | 2025-04-30 12:17 | PC.NURSE ---
Patient returned from MRI at this time.
[2025-04-30 12:23] VITALS: BP 153/77; PULSE 65; RESP 16; TEMP 36.6; O2SAT 99
--- NOTE | 2025-04-30 14:04 | MHC.CM.PN ---
IMM addressed with Patient. Home/self care is the goal.Patient lives with his /HCP, and his Daughter will transport at [place]. Patient is functionally independent.PCP is Dr. Michael Mcconnell.
--- NOTE | 2025-04-30 14:26 | P.DS_ITS ---
DS: Providers Provider Date of Service: 04/30/25 Date of admission: 04/29/25 18:42 Date of discharge: 04/30/25 Primary care physician: Michael Mcconnell MD Consults: 04/29/25 21:13 Consult to Neurology Routine Consulting Provider: [facility] Reason for consultation: ?TIA DS: Diagnosis Discharge Diagnosis (1) Brain TIA: Status: Acute (2) Subdural hematoma, chronic: Status: Acute DS: Summary Hospital Course Hospital Course: Admission hpi Chief Complaint: blurry vision Patient is an 79-year-old male with a past medical history significant for history of TIAs, hypertension, recent subdural hematoma secondary to traumatic fall, s/p to recent brain surgeries including coils placed, now on Keppra for seizure prophylaxis, who presented to the ED due to dizziness and blurry vision lasting a few minutes. The patient reports that this happened to him about 5 years ago and he was diagnosed with TIAs. He was previously on aspirin however was told to hold this due to his recent brain bleed and does not take any anticoagulants. The patient reports that his blurry vision has resolved. He describes it more like contorted vision which lasted about 5 minutes. He denies any headache, weakness, dizziness, nausea, vomiting, chest pain, shortness of breath or gait instabilities. Hospital course Patient was seen evaullated by Neurologist with the following This episode is similar to previous episodes that occurred 4-5 years ago somewhat suggestive of a vertebrobasilar TIA. The other possibility is a transi ent vestibular/labyrinthine dysfunction There is no evidence of an acute stroke on his MRI. HEENT view of his acute to subacute subdural hematomas over the right frontoparietal area I would hold anti platelet therapy or use of any anticoagulants. I have personally reviewed his CT scan and MRI images. Acute on subacute subdural hematoma right frontoparietal with the 11-12 mm thickness. It is unclear if there were some underlying abnormal blood vessels as well because according to the patient some glue and coils were also used it is part of the procedure. It appears to be stable and the patient is relatively asymptomatic from it. He has a follow-up visit in early May with his neurologist at [facility]. Time Attestation Discharge Coordination Time (in mins): 45 Quality: Safe Use of Opioids Does Pt have an Active Cancer Diagnosis on the Problem List?: No Quality: Stroke Does the patient have a stroke diagnosis?: No Physical Exam Vital Signs: Vital Signs: Last Vital Signs Temp 97.9 F 04/30/25 12:23 Pulse 65 04/30/25 12:23 Resp 16 04/30/25 12:23 BP 153/77 H 04/30/25 12:23 Pulse Ox 99 04/30/25 12:23 O2 Del Method Room Air 04/30/25 12:23 BMI result Body Mass Index 23.6 DS: Data Data Completed and Pending Labs on day of discharge: Laboratory Results - last 24 hr 04/29/25 04/30/25 04/30/25 17:13 00:43 03:59 WBC 4.0 L 3.7 L RBC 4.24 L 3.89 L Hgb 12.5 L 11.5 L Hct 38.9 L 35.2 L MCV 91.7 90.5 MCH 29.5 29.6 MCHC 32.1 32.7 RDW 15.4 15.3 Plt Count 133 L 131 L MPV 11.4 11.3 Immature Gran % (Auto) 0.3 Neut % (Auto) 54.8 Lymph % (Auto) 28.1 [place] % (Auto) 12.0 H Eos % (Auto) 3.5 Baso % (Auto) 1.3 Lymph # (Auto) 1.1 L [place] # (Auto) 0.5 Eos # (Auto) 0.1 Baso # (Auto) 0.1 Abs Immat Gran (auto) 0.01 Absolute Neuts (auto) 2.2 Absolute Nucleated RBC 0.000 0.000 Nucleated RBC % (auto) 0.0 0.0 Smear Tech's Comments VERIFIED PT 13.6 H INR 1.1 Sodium 146 H 144 Potassium 3.8 3.3 Chloride 111 H 112 H Carbon Dioxide 26 23 Anion Gap 13 12 BUN 16 14 Creatinine 0.85 0.81 Estim Creat Clear Calc 72.5 76.1 Estimated GFR > 60 > 60 Random Glucose 76 85 Calcium 9.4 8.8 D Magnesium 2.2 Total Bilirubin 0.9 AST 32 ALT 35 Alkaline Phosphatase 119 H Total Protein 7.2 Albumin 4.4 Triglycerides 41 Cholesterol 104 LDL Cholesterol, Calc 50 HDL Cholesterol 46 Urine Color Yellow Urine Appearance Clear Urine pH 6.5 Ur Specific [place] 1.015 Urine Protein Trace Urine Glucose (UA) Negative Urine Ketones Negative Urine Blood Negative Urine Nitrite Negative Ur Leukocyte Esterase Negative Influenza Type A (PCR) NEGATIVE Influenza Type B (PCR) NEGATIVE RSV RNA Qual (PCR) NEGATIVE SARS-CoV-2 RNA (RT-PCR) NEGATIVE Discharge Plan Discharge Anticipated Discharge Date/Time: 04/30/25 14:28 Patient Disposition: Home, Self-Care Discharge Diagnosis: TIA, chronic subdural hematoma Referrals: Michael Mcconnell MD [Primary Care Provider, Medical] - 1 Week Discharge Medications: Continued atorvastatin 40 mg tablet 40 mg PO DAILY amlodipine 5 mg tablet 5 mg PO DAILY losartan 100 mg tablet 100 mg PO DAILY levetiracetam 750 mg tablet extended release 24 hr 1,500 mg PO BEDTIME acetaminophen 500 mg Tablet 500 mg PO BEDTIME multivit with min-folic acid [Multivitamin Gummies] 200 mcg Tablet,Chewable 2 tab PO DAILY Discharge Orders: Discharge Order (Routine); Ordered 04/30/25 Ordered By: Nhan Magana Diet: Advance to usual diet Activity on Discharge: As tolerated Stand Alone Forms: Patient Portal Discharge page Print Language: Greek Care Plan Goals: recovery from chronic and acute subdural hematoma, tia Health Concerns: same as above Plan of Treatment: avoid taking aspirin or other forms of blood thiners follow up with your doctor and neurologist in a week Assessment: see above
[2025-04-30 15:09] VITALS: BP 163/82; PULSE 70; RESP 18; TEMP 36.8; O2SAT 95
--- NOTE | 2025-04-30 15:35 | MHC.CM.PN ---
Patient has been medically cleared for dc to home today, self care.
== END 2025-04-30 15:28 | disposition home or self-care (01) ==
LOC: HO.ED 18:54 → HO.EDOVER 19:03
PROVIDERS: Physician Assistant; Registered Nurse Emergency; Admitting Provider Family Medicine; Emergency Provider Emergency Medicine Emergency Medical Services; PCP Internal Medicine; Visit Provider Internal Medicine
DX: G45.9 Transient cerebral ischemic attack, unspecified (principal); I62.03 Nontraumatic chronic subdural hemorrhage; R42 Dizziness and giddiness; S09.90XA Unspecified injury of head, initial encounter; W19.XXXA Unspecified fall, initial encounter; Y93.9 Activity, unspecified; Y92.9 Unspecified place or not applicable; I10 Essential (primary) hypertension; E78.5 Hyperlipidemia, unspecified; Z03.818 Encounter for observation for suspected exposure to other biological agents ruled out; Z79.01 Long term (current) use of anticoagulants; Z79.899 Other long term (current) drug therapy
CPT/HCPCS: 36415; 70450; 70551; 80048; 80053; 80061; 81003; 83735; 85025; 85027; 85610; 87637; 93005; 93306; 97161; 97165; 99222; 99285; Q9957

== ENCOUNTER → 2025-04-29 16:45 | Outpatient (BNV) | payer MEDICARE, SELFPAY | PROVIDERS: Emergency Provider Emergency Medicine Emergency Medical Services; PCP Internal Medicine; Visit Provider Radiology Diagnostic Radiology | DX: S06.5X0A Traumatic subdural hemorrhage without loss of consciousness, initial encounter (principal); Z04.3 Encounter for examination and observation following other accident | CPT/HCPCS: 70450 ==

== ENCOUNTER → 2025-04-29 16:45 | Outpatient (BNV) | payer MEDICARE, SELFPAY | PROVIDERS: Admitting Provider Family Medicine; Emergency Provider Emergency Medicine Emergency Medical Services; PCP Internal Medicine; Visit Provider Internal Medicine | DX: R42 Dizziness and giddiness (principal) | CPT/HCPCS: 93010 ==

== ENCOUNTER 2025-04-29 18:42 | Outpatient (BNV) | payer MEDICARE, SELFPAY | END 2025-04-30 11:32 | PROVIDERS: Admitting Provider Family Medicine; Emergency Provider Emergency Medicine Emergency Medical Services; PCP Internal Medicine; Visit Provider Radiology Diagnostic Radiology | DX: S06.5XAA Traumatic subdural hemorrhage with loss of consciousness status unknown, initial encounter (principal) | CPT/HCPCS: 70551 ==

== ENCOUNTER 2025-04-29 18:42 | Outpatient (BNV) | payer MEDICARE, SELFPAY | END 2025-04-30 07:00 | PROVIDERS: Admitting Provider Family Medicine; Emergency Provider Emergency Medicine Emergency Medical Services; PCP Internal Medicine; Visit Provider Internal Medicine | DX: I42.2 Other hypertrophic cardiomyopathy (principal); I36.1 Nonrheumatic tricuspid (valve) insufficiency; I31.39 Other pericardial effusion (noninflammatory) | CPT/HCPCS: 93306 ==

== ENCOUNTER → 2025-04-29 18:42 | Outpatient (BNV) | payer MEDICARE, SELFPAY | PROVIDERS: Admitting Provider Family Medicine; Emergency Provider Emergency Medicine Emergency Medical Services; PCP Internal Medicine; Visit Provider Internal Medicine | DX: G45.9 Transient cerebral ischemic attack, unspecified (principal); I62.03 Nontraumatic chronic subdural hemorrhage | CPT/HCPCS: 99223; 99232 ==

== ENCOUNTER → 2025-04-29 18:42 | Outpatient (BNV) | payer MEDICARE, SELFPAY | PROVIDERS: Admitting Provider Family Medicine; Emergency Provider Emergency Medicine Emergency Medical Services; PCP Internal Medicine; Visit Provider Psychiatry & Neurology Neurology | DX: G45.9 Transient cerebral ischemic attack, unspecified (principal); I62.03 Nontraumatic chronic subdural hemorrhage | CPT/HCPCS: 99223 ==